=== PATIENT | male | born 1935 | race Caucasian/White ===

== ENCOUNTER → 2017-07-29 | Outpatient (CLI) | payer MEDICARE, BC ==
[2017-07-29 18:39] LABS: ABSOLUTE EOSINOPHILS # (AUTO) 0.3 10^3/uL (0.0-0.6); ABSOLUTE LYMPHOCYTES (AUTO) 1.1 10^3/uL (0.5-4.7); ABSOLUTE MONOCYTES (AUTO) 0.5 10^3/uL (0.1-1.4); ABSOLUTE NEUT (AUTO) 4.1 10^3/uL (1.7-8.2); BASOPHILS % (AUTO) 0.6 % (0-2); EOSINOPHILS % (AUTO) 4.3 % (0-6); HEMATOCRIT 38.8 % (37.9-51.0); HEMOGLOBIN 12.9 g/dL (13.5-17.0); HGB HCT DIFFERENCE -0.1; LYMPHOCYTES % (AUTO) 19.1 % (13-45); MEAN CORPUSCULAR HEMOGLOBIN 30.5 pg (27.0-33.4); MEAN CORPUSCULAR HGB CONC 33.2 g/dL (32.0-36.0); MEAN CORPUSCULAR VOLUME 92 fl (80-97); MONOCYTES % (AUTO) 7.9 % (3-13); RED BLOOD COUNT 4.22 10^6/uL (4.35-5.55); RED CELL DISTRIBUTION WIDTH 14.5 % (11.5-14.0); SEGMENTED NEUTROPHILS % (AUTO) 68.1 % (42-78)
[2017-07-29 19:07] LABS: LIPASE 28.5 U/L (23-300)
== END ==
LOC: OD 17:16
PROVIDERS: ATTEND Internal Medicine
DX: R19.7 Diarrhea, unspecified (principal); R10.12 Left upper quadrant pain
CPT/HCPCS: 36415; 82150; 83690; 85025

== ENCOUNTER 2018-08-19 20:16 | Inpatient (IN) | payer MEDICARE, BC ==
[2018-08-19 21:22] LABS: ABSOLUTE LYMPHOCYTES (AUTO) 0.6 10^3/uL (0.5-4.7); ABSOLUTE MONOCYTES (AUTO) 0.1 10^3/uL (0.1-1.4); ABSOLUTE NEUT (AUTO) 2.9 10^3/uL (1.7-8.2); BASOPHILS % (AUTO) 0.2 % (0-2); EOSINOPHILS % (AUTO) 0.2 % (0-6); HEMOGLOBIN 11.9 g/dL (13.5-17.0); LYMPHOCYTES % (AUTO) 15.4 % (13-45); MEAN CORPUSCULAR HEMOGLOBIN 31.9 pg (27.0-33.4); MEAN CORPUSCULAR HGB CONC 33.1 g/dL (32.0-36.0); MEAN CORPUSCULAR VOLUME 97 fl (80-97); MONOCYTES % (AUTO) 3.4 % (3-13); PLATELET COUNT 177 10^3/uL (150-450); RED BLOOD COUNT 3.72 10^6/uL (4.35-5.55); RED CELL DISTRIBUTION WIDTH 14.6 % (11.5-14.0); SEGMENTED NEUTROPHILS % (AUTO) 80.8 % (42-78); TOTAL CELLS COUNTED % (AUTO) 100 %; WHITE BLOOD COUNT 3.6 10^3/uL (4.0-10.5)
[2018-08-19 21:57] LABS: ALANINE AMINOTRANSFERASE 15 U/L (21-72); ALBUMIN 3.5 g/dL (3.5-5.0); ALKALINE PHOSPHATASE 49 U/L (38-126); ANION GAP 10 (5-19); ASPARTATE AMINO TRANSFERASE 18 U/L (17-59); BILIRUBIN,DIRECT 0.2 mg/dL (0.0-0.4); BILIRUBIN,TOTAL 0.3 mg/dL (0.2-1.3); BLOOD UREA NITROGEN 27 mg/dL (7-20); CALCIUM 9.3 mg/dL (8.4-10.2); CARBON DIOXIDE 27 mmol/L (22-30); CHLORIDE 100 mmol/L (98-107); GLUCOSE 378 mg/dL (75-110); LIPASE 35.5 U/L (23-300); POTASSIUM 4.7 mmol/L (3.6-5.0); TOTAL PROTEIN 6.3 g/dL (6.3-8.2)
[2018-08-19 22:08] LABS: INTERNATIONAL RATION (INR) 2.34; PARTIAL THROMBOPLASTIN TIME 39.4 SEC (23.5-35.8); PROTHROMBIN TIME 26.7 SEC (11.4-15.4)
--- NOTE | 2018-08-19 22:38 | RADIOLOGY REPORT (SQ) ---
EXAM DESCRIPTION: XR CHEST 1 VIEW COMPLETED DATE/TME: 08/19/2018 21:50 CLINICAL HISTORY: 82 years, Male, cough COMPARISON: EXAM DESCRIPTION: CLINICAL HISTORY: cough COMPARISON: None. FINDINGS: Single view of the chest is submitted. Cardiac silhouette is enlarged. There is consolidation and atelectasis at each lung base. Small left pleural effusion. Electronic cardiac device and leads are present. IMPRESSION: Bilateral consolidations. NUMBER OF VIEWS: TECHNIQUE: LIMITATIONS: None. FINDINGS: IMPRESSION: 2010 [facility], [place] [employer]- All Rights Reserved
[2018-08-19] MEDS ORDERED: NORMAL SALINE 1000 ML 1,000 ML IV ONE (23:24)
--- NOTE | 2018-08-19 23:26 | ER Document Report ---
ED GI/ - General Chief Complaint: Abdominal Pain Stated Complaint: STOMACH PAIN,DARK STOOLS Time Seen by Provider: 08/19/18 21:29 Mode of Arrival: Ambulatory Information source: Patient Notes: Patient complained of sudden onset of left lower quadrant abdominal pain associated with black stools this afternoon. Patient denied nausea vomiting, fever chills or sinus pain. TRAVEL OUTSIDE OF THE [place] IN LAST 30 DAYS: No - HPI Patient complains to provider of: Abdominal pain Onset: Just prior to arrival Timing/Duration: Sudden Quality of pain: Sharp Severity at maximum: Moderate Severity in ED: Mild Pain Level: 2 Location: LLQ Associated symptoms: Other - Black stools Exacerbated by: Denies Relieved by: Denies Similar symptoms previously: No Recently seen / treated by doctor: No - Related Data Allergies/Adverse Reactions: No Known Allergies Allergy (Verified 08/28/15 12:28) Past Medical History - Social History Smoking Status: Never Smoker Chew tobacco use (# tins/day): No Frequency of alcohol use: None Drug Abuse: None Family History: Reviewed & Not Pertinent Patient has suicidal ideation: No Patient has homicidal ideation: No - Past Medical History Cardiac Medical History: Reports: Hx Atrial Fibrillation, Hx Coronary Artery Disease, Hx Hypertension Denies: Hx Congestive Heart Failure, Hx Heart Attack, Hx Heart Murmur Pulmonary Medical History: Reports: Hx Asthma, Hx Pneumonia Denies: Hx Bronchitis, Hx COPD, Hx Tuberculosis Neurological Medical History: Denies: Hx Cerebrovascular Accident, Hx Seizures Renal/ Medical History: Denies: Hx Peritoneal Dialysis GI Medical History: Musculoskeletal Medical History: Reports Hx Arthritis Infectious Medical History: Past Surgical History: Reports: Hx Appendectomy, Hx Cholecystectomy, Hx Pacemaker, Hx Tonsillectomy - Immunizations Hx Diphtheria, Pertussis, Tetanus Vaccination: Yes Hx Pneumococcal Vaccination: 02/02/06 Review of Systems - Review of Systems Constitutional: No symptoms reported EENT: No symptoms reported Cardiovascular: No symptoms reported Respiratory: No symptoms reported Gastrointestinal: Abdominal pain, Black stools Genitourinary: No symptoms reported Male Genitourinary: No symptoms reported Musculoskeletal: No symptoms reported Skin: No symptoms reported Hematologic/Lymphatic: No symptoms reported Neurological/Psychological: No symptoms reported -: Yes All other systems reviewed and negative Physical Exam - Vital signs Vitals: Temp Pulse Resp BP Pulse Ox 97.8 F 60 20 154/59 H 97 08/19/18 20:23 08/19/18 20:23 08/19/18 20:23 08/19/18 20:23 08/19/18 20:23 Interpretation: Normal - General General appearance: Appears well, Alert - HEENT Head: Normocephalic, Atraumatic Eyes: Normal Pupils: PERRL - Respiratory Respiratory status: No respiratory distress Chest status: Nontender Breath sounds: Normal Chest palpation: Normal - Cardiovascular Rhythm: Regular Heart sounds: Normal auscultation Murmur: No - Abdominal Inspection: Normal Distension: No distension Bowel sounds: Normal Tenderness: Tender - LLQ tenderness to palpation. Organomegaly: No organomegaly - Rectal Tenderness: No Stool: Heme positive, See lab result Hemorrhoids: None Notes: [employer] Operator is Ms Gosia RN. - Back Back: Normal, Nontender - Extremities General upper extremity: Normal inspection, Nontender, Normal color, Normal ROM , Normal temperature General lower extremity: Normal inspection, Nontender, Normal color, Normal ROM , Normal temperature, Normal weight bearing. No: Osei's sign - Neurological Neuro grossly intact: Yes Cognition: Normal Orientation: AAOx4 Tamara Coma Scale Eye Opening: Spontaneous Tamara Coma Scale Verbal: Oriented Tamara Coma Scale Motor: Obeys Commands [place] Coma Scale Total: 15 Speech: Normal Motor strength normal: LUE, RUE, LLE, RLE Sensory: Normal - Psychological Associated symptoms: Normal affect, Normal mood - Skin Skin Temperature: Warm Skin Moisture: Dry Skin Color: Normal Course - Vital Signs Vital signs: Temp Pulse Resp BP Pulse Ox 97.8 F 60 15 148/57 H 100 08/19/18 20:23 08/19/18 20:23 08/20/18 04:01 08/20/18 04:01 08/20/18 04:01 - Laboratory Result Diagrams: 08/19/18 21:11 08/19/18 21:11 Laboratory results interpreted by me: 08/19/18 08/19/18 08/19/18 21:11 21:11 21:11 WBC 3.6 L RBC 3.72 L Hgb 11.9 L Hct 36.0 L RDW 14.6 H Seg Neutrophils % 80.8 H PT 26.7 H APTT 39.4 H BUN 27 H Glucose 378 H ALT 15 L Urine Glucose (UA) Urine Blood 08/19/18 23:28 WBC RBC Hgb Hct RDW Seg Neutrophils % PT APTT BUN Glucose ALT Urine Glucose (UA) >=500 H Urine Blood SMALL H - Diagnostic Test Radiology reviewed: Image reviewed, Reports reviewed - Consults No standard instances Time consulted: 03:20 Reason for consultation: 08/20/18 03:44 I consulted the [place] readiness paraprofessional Dr Nelly Rivers. He recommend admitting patient to the hospitalist and he will evaluate patient for a procedure this morning. - Transfer of Care Notes: 08/19/18 23:25 LLQ abdominal Pain. Discharge - Discharge Clinical Impression: Abdominal pain Qualifiers: Abdominal location: left lower quadrant Qualified Code(s): R10.32 - Left lower quadrant pain GI bleed Qualifiers: GI bleed type/associated pathology: unspecified gastrointestinal hemorrhage type Qualified Code(s): K92.2 - Gastrointestinal hemorrhage, unspecified Condition: Stable Disposition: ADMITTED INPATIENT Admitting Provider: Hospitalist Unit Admitted: Telemetry
[2018-08-19 23:50] LABS: APPEARANCE,URINE CLEAR; BILIRUBIN,URINE NEGATIVE (NEGATIVE); COLOR,URINE YELLOW; GLUCOSE, URINE >=500 mg/dL (NEGATIVE); KETONES,URINE NEGATIVE (NEGATIVE); LEUKOCYTE ESTERASE,URINE NEGATIVE (NEGATIVE); NITRITE,URINE NEGATIVE (NEGATIVE); PROTEIN,URINE NEGATIVE (NEGATIVE); URINE SPECIFIC GRAVITY 1.018; UROBILINOGEN,URINE NEGATIVE mg/dL (<2.0)
--- NOTE | 2018-08-20 01:41 | RADIOLOGY REPORT (SQ) ---
EXAM DESCRIPTION: CLINICAL HISTORY: 82 years Male LLQ abdominal pain. CREAT 1.07 COMPARISON: 04/18/2018 TECHNIQUE: Contiguous axial images obtained through the abdomen and pelvis without IV contrast. Reformatted images obtained. This exam was performed according to our department optimization program which includes automated exposure control, adjustment of the mA and/or kv according to patient size and/or use of iterative reconstruction technique. FINDINGS: The lung bases are clear. Heart is mildly enlarged. Pacemaker in place. Calcification in the coronary arteries and aorta. Fatty infiltration of the liver. The spleen and pancreas appear unremarkable. No adrenal masses. The kidneys appear unremarkable. No hydronephrosis or definite ureteral calculi. The gallbladder is surgically absent. No aneurysmal dilatation of the aorta. No bowel obstruction. Diverticulosis without evidence of diverticulitis. Multilevel degenerative change in the thoracic and the lumbar spine with previous spinal fusion No free pelvic fluid. Bilateral fat-containing inguinal hernias. IMPRESSION: Diverticulosis without evidence of diverticulitis Enlarged heart Absent gallbladder Additional changes as above
[2018-08-20] MEDS ORDERED: LEVOFLOXACIN 750 MG/D5W RTU 750 MG/150 ML RTUPB IV ONE (01:59)
[2018-08-20] MEDS ORDERED: PANTOPRAZOLE SODIUM 40 MG VIAL IV ONE (03:27)
[2018-08-20] MEDS ORDERED: PROMETHAZINE HCL 25 MG TABLET PO PRN (06:05)
[2018-08-20] MEDS ORDERED: IPRATROPIUM/ALBUTEROL 0.5-2.5 MG/3 ML AMPUL NEB PRN (06:05)
[2018-08-20] MEDS ORDERED: GLUCAGON,HUMAN RECOMB 1 MG INJ SUBCUT PRN (06:05)
[2018-08-20] MEDS ORDERED: ACETAMINOPHEN 325 MG TABLET PO PRN (06:05)
[2018-08-20] MEDS ORDERED: DEXTROSE 40% GEL 15 GM TUBE PO PRN ×2 (06:05)
[2018-08-20] MEDS ORDERED: DEXTROSE 50%-WATER 25 GM/50 ML DISP.SYRIN IV PRN ×2 (06:05)
[2018-08-20] MEDS ORDERED: MAG HYDROX/AL HYDROX/SIMETH SUSP 30 ML UDCUP PO PRN (06:05)
[2018-08-20] MEDS ORDERED: PROMETHAZINE HCL INJ 25 MG/1 ML VIAL IV PRN (06:05)
--- NOTE | 2018-08-20 06:29 | PDOC H&P ---
History of Present Illness Admission Date/PCP: 08/20/18 03:59 GREY MCMULLEN MD Patient complains of: Melena History of Present Illness: AMINATA BILL SR is a 82 year old male who came to the emergency department as yesterday he had 2 melanotic bowel movements, one hour apart, tells me that they are black tarry stools. Patient denies having any history of GI bleeding in the past. Complains of left lower quadrant pain which is not new has been going on and off during several years. Symptoms were associated with nausea for which she took Zofran at home. Denies dizziness, fever, chills, vomiting, chest pain. Patient is on Coumadin at home, current INR 2.34. Last colonoscopy about 7 years ago was found polyps. EGD about [address] results[address] CT abdomen and pelvis with diverticulosis. Hemoglobin 11.9 and hematocrit 36. No bowel movements in the ED. Patient is also complaining of allergic symptoms, tells me that as they went back to their house which was floated to have a lot of mold, he has been mildly wheezing with pink eyes, denies postnasal drip but feels that his nose and head are stuffy. Chest x-ray shows a small left pleural effusion with atelectasis versus infiltrate in both bases. ED attending is spoke with Dr. Rivers who is the GI regional education manager and his plan to do EGD today. Past Medical History Cardiac Medical History: Reports: Atrial Fibrillation, Coronary Artery Disease, Hypertension Denies: Congestive Heart Failure, Myocardial Infarction, Heart Murmur Pulmonary Medical History: Reports: Asthma, Chronic Obstructive Pulmonary Disease (COPD), Pneumonia Denies: Bronchitis, Tuberculosis Neurological Medical History: Denies: Seizures Endocrine Medical History: Reports: Diabetes Mellitus Type 2 Renal/ Medical History: Reports: Other - BPH GI Medical History: Musculoskeltal Medical History: Reports: Arthritis Hematology: Denies: Anemia Past Surgical History Past Surgical History: Reports: Appendectomy, Cholecystectomy, Pacemaker, Tonsillectomy Social History Smoking Status: Never Smoker Frequency of Alcohol Use: None Hx Recreational Drug Use: No Drugs: None Hx Prescription Drug Abuse: No Past Social History Note: Lives with his who is at the bedside. Patient is minimal ambulatory with a cane due to back and knee issues. - Advance Directive Resuscitation Status: Do Not Resuscitate Family History Family History: Reviewed & Not Pertinent Parental Family History Reviewed: No Children Family History Reviewed: NA Sibling(s) Family History Reviewed.: NA Medication/Allergy Home Medications: Amlodipine Besylate [Norvasc 5 mg Tablet] 5 mg PO DAILY 03/28/12 Doxazosin Mesylate [Cardura Xl] 4 mg PO DAILY 03/28/12 Morphine Sulfate [Morphine Ir 30 Mg Tablet] 30 mg PO TID 03/28/12 Multivitamin [Multiple Vitamins Daily] 1 each PO DAILY 03/28/12 [place]-3 Fatty Acids/Fish Oil [Fish Oil 300 Mg Softgel] 2 each PO BID 03/28/12 Warfarin Sodium [Coumadin] 6 mg PO QHS 03/28/12 Fluticasone/Salmeterol [Advair 250-50 Diskus 14 Dose/Diskus] 1 inh IH Q12H 08/28 Glimepiride [Amaryl] 2 mg PO DAILY 08/28/15 Hydrochlorothiazide 25 mg PO DAILY 08/28/15 Metoprolol Tartrate 25 tab PO DAILY 08/28/15 Ondansetron [Zofran Odt 4 mg Tablet] 1 - 2 tab PO Q4H #10 tab.rapdis 08/28/15 Oxycodone HCl 5 mg PO BID 08/28/15 Pregabalin [Lyrica 75 mg Capsule] 75 mg PO DAILY 08/28/15 Triamterene/Hydrochlorothiazid [Triamterene-Hctz 37.5-25 mg Cp] 37.5 tab PO DAILY 08/28/15 Allergies/Adverse Reactions: No Known Allergies Allergy (Verified 08/28/15 12:28) Review of Systems Review of Systems: As outlined in the HPI, others negative Physical Exam Vital Signs: Temp Pulse Resp BP Pulse Ox 97.9 F 69 15 163/75 H 100 08/20/18 05:35 08/20/18 05:35 08/20/18 04:01 08/20/18 05:35 08/20/18 05:35 Intake & Output 08/18/18 08/19/18 08/20/18 06:59 06:59 06:59 Intake Total 150 Balance 150 Additional comments: General appearance: Well-developed, well-nourished, alert and cooperative, and appears to be in no acute distress Head: Normocephalic Eyes: PEERL, EOMI, vision is decreased, conjunctiva pinkish. Ears: External auditory canal and tympanic membranes clear, hearing grossly intact. Nose: No nasal discharge. Throat: Oral cavity and pharynx normal. No inflammation, swelling, exudate or lesions. Neck: Neck supple, nontender without lymphadenopathy, masses or thyromegaly. Cardiac: Normal S1 and S2. No S3, S4 or murmurs. Rhythm is irregular. There is no peripheral edema, cyanosis or pallor. Extremities are warm and well perfused. Capillary refill is less than 2 seconds. No carotid bruits. Lungs: Clear to auscultation and percussion without rales, rhonchi, very mild expiratory wheezing or diminished breath sounds. Not using accessory muscles. Abdomen: Positive bowel sounds. Soft. Nondistended, minimal tenderness in the left lower quadrant. No guarding or rebound. No masses. No hepatosplenomegaly Extremities: No significant deformity or joint abnormality. No edema. Peripheral pulses intact. No varicosities. Neurological: Cranial nerves II through XII grossly intact. Moves all 4 extremities Skin: Skin pale, normal texture and turgor with no lesions or eruptions, warm and dry. Psychiatric: The mental examination revealed the patient was oriented to person , place, and time. The patient was able to demonstrate good judgment on recent , without hallucinations, abnormal affect or abnormal behaviors. Results Laboratory Results: 08/19/18 08/19/18 08/19/18 21:11 21:11 21:11 WBC 3.6 L RBC 3.72 L Hgb 11.9 L Hct 36.0 L MCV 97 MCH 31.9 MCHC 33.1 RDW 14.6 H Plt Count 177 Seg Neutrophils % 80.8 H Lymphocytes % 15.4 Monocytes % 3.4 Eosinophils % 0.2 Basophils % 0.2 Absolute Neutrophils 2.9 Absolute Lymphocytes 0.6 Absolute Monocytes 0.1 Absolute Eosinophils 0.0 Absolute Basophils 0.0 PT 26.7 H INR 2.34 APTT 39.4 H Sodium 137.0 Potassium 4.7 Chloride 100 Carbon Dioxide 27 Anion Gap 10 BUN 27 H Creatinine 1.07 Est GFR ( Amer) > 60 Est GFR (Non-Af Amer) > 60 Glucose 378 H Calcium 9.3 Total Bilirubin 0.3 Direct Bilirubin 0.2 AST 18 ALT 15 L Alkaline Phosphatase 49 Total Protein 6.3 Albumin 3.5 Lipase 35.5 Urine Color Urine Appearance Urine pH Ur Specific [place] Urine Protein Urine Glucose (UA) Urine Ketones Urine Blood Urine Nitrite Urine Bilirubin Urine Urobilinogen Ur Leukocyte Esterase Urine WBC (Auto) Urine RBC (Auto) U Hyaline Cast (Auto) Urine Mucus (Auto) Urine Ascorbic Acid 08/19/18 23:28 WBC RBC Hgb Hct MCV MCH MCHC RDW Plt Count Seg Neutrophils % Lymphocytes % Monocytes % Eosinophils % Basophils % Absolute Neutrophils Absolute Lymphocytes Absolute Monocytes Absolute Eosinophils Absolute Basophils PT INR APTT Sodium Potassium Chloride Carbon Dioxide Anion Gap BUN Creatinine Est GFR ( Amer) Est GFR (Non-Af Amer) Glucose Calcium Total Bilirubin Direct Bilirubin AST ALT Alkaline Phosphatase Total Protein Albumin Lipase Urine Color YELLOW Urine Appearance CLEAR Urine pH 5.0 Ur Specific [place] 1.018 Urine Protein NEGATIVE Urine Glucose (UA) >=500 H Urine Ketones NEGATIVE Urine Blood SMALL H Urine Nitrite NEGATIVE Urine Bilirubin NEGATIVE Urine Urobilinogen NEGATIVE Ur Leukocyte Esterase NEGATIVE Urine WBC (Auto) 0 Urine RBC (Auto) 6 U Hyaline Cast (Auto) 1 Urine Mucus (Auto) RARE Urine Ascorbic Acid NEGATIVE Impressions: Chest X-Ray 08/19/18 21:50 Electronic cardiac device and leads are present. IMPRESSION: Bilateral consolidations. NUMBER OF VIEWS: TECHNIQUE: LIMITATIONS: None. FINDINGS: IMPRESSION: 2010 [employer]- All Rights Reserved Abdomen/Pelvis CT 08/19/18 23:24 IMPRESSION: Diverticulosis without evidence of diverticulitis Enlarged heart Absent gallbladder Additional changes as above Assessment & Plan - Diagnosis (1) GI bleed Qualifiers: GI bleed type/associated pathology: unspecified gastrointestinal hemorrhage type Qualified Code(s): K92.2 - Gastrointestinal hemorrhage, unspecified Is this a current diagnosis for this admission?: Yes Plan: Patient comes with 2 episodes of melena. Hemoglobin 11.9, patient does not need any emergent blood transfusion, type and screen sent in the ED. IV Protonix 40 mg twice a day. GI with Dr. Rivers aware of the patient and plan to do EGD today as per discussion he had with the ED attending. We will keep the patient n.p.o. No further bowel movements in the ED. Denies any history of GI bleeding in the past. Coumadin on hold. (2) Diabetes mellitus type 2 in nonobese Is this a current diagnosis for this admission?: Yes Plan: Accu-Cheks every 6 hours the patient will be n.p.o. Continue home medications. Insulin sliding scale and hypoglycemia protocol. (3) Chronic atrial fibrillation Is this a current diagnosis for this admission?: Yes Plan: Patient is on Coumadin and metoprolol. Coumadin on hold. Last INR 2.34, will repeat an INR this morning. - Time Time Spent: 30 to 50 Minutes - Inpatient Certification Based on my medical assessment, after consideration of the patient's comorbidities, presenting symptoms, or acuity I expect that the services needed warrant INPATIENT care.: Yes I certify that my determination is in accordance with my understanding of Medicare's requirements for reasonable and necessary INPATIENT services [42 CFR 412.3e].: Yes Medical Necessity: Risk of Complication if Not Cared For in Hospital
[2018-08-20] MEDS: NORMAL SALINE 1000 ML 1,000 ML IV PRN ×2 (06:50→20:22)
[2018-08-20] MEDS ORDERED: MORPHINE SULFATE IR 30 MG TABLET PO PRN (06:58)
[2018-08-20 07:12] LABS: HEMATOCRIT 34.2 % (37.9-51.0); HEMOGLOBIN 11.4 g/dL (13.5-17.0); MEAN CORPUSCULAR HEMOGLOBIN 31.8 pg (27.0-33.4); MEAN CORPUSCULAR HGB CONC 33.2 g/dL (32.0-36.0); MEAN CORPUSCULAR VOLUME 96 fl (80-97); PLATELET COUNT 163 10^3/uL (150-450); RED BLOOD COUNT 3.58 10^6/uL (4.35-5.55); RED CELL DISTRIBUTION WIDTH 14.3 % (11.5-14.0)
[2018-08-20 07:13] LABS: WHITE BLOOD COUNT 11.6 10^3/uL (4.0-10.5)
[2018-08-20 07:19] LABS: PROTHROMBIN TIME 27.3 SEC (11.4-15.4)
--- NOTE | 2018-08-20 07:43 | PDOC CONSULTATION ---
Consultation Consult Date: 08/20/18 Attending physician:: ANTOINE DING Consult reason:: GI bleeding History of Present Illness Admission Date/PCP: 08/20/18 03:59 GREY MCMULLEN MD History of Present Illness: AMINATA BILL SR is a 82 year old male I was called for the patient overnight from the ED was told that he needed to be admitted has been having melena patient with previous colonoscopy showing some polyps however has symptoms of melena patient will probably need EGD however I was not told about the patient PT/ INR it is elevated and patient is on coumadin will NOT be able to proceed today since elevated will need to let the PT either normalize or be corrected prior to EGD may have ulcer disease Past Medical History Cardiac Medical History: Reports: Atrial Fibrillation, Coronary Artery Disease, Hypertension Denies: Congestive Heart Failure, Myocardial Infarction, Heart Murmur Pulmonary Medical History: Reports: Asthma, Chronic Obstructive Pulmonary Disease (COPD), Pneumonia Denies: Bronchitis, Tuberculosis Neurological Medical History: Denies: Seizures Endocrine Medical History: Reports: Diabetes Mellitus Type 2 Renal/ Medical History: Reports: Other - BPH GI Medical History: Musculoskeltal Medical History: Reports: Arthritis Hematology: Denies: Anemia Past Surgical History Past Surgical History: Reports: Appendectomy, Cholecystectomy, Pacemaker, Tonsillectomy Social History Smoking Status: Never Smoker Frequency of Alcohol Use: None Hx Recreational Drug Use: No Drugs: None Hx Prescription Drug Abuse: No - Advance Directive Resuscitation Status: Do Not Resuscitate Family History Family History: Reviewed & Not Pertinent Parental Family History Reviewed: Yes Children Family History Reviewed: Unknown Sibling(s) Family History Reviewed.: Unknown Medication/Allergy Allergies/Adverse Reactions: No Known Allergies Allergy (Verified 08/28/15 12:28) Review of Systems Constitutional: ABSENT: fever(s), headache(s), night sweats Eyes: ABSENT: visual disturbances Ears: ABSENT: hearing changes Nose, Mouth, and Throat: ABSENT: mouth pain Cardiovascular: ABSENT: edema, palpitations Respiratory: ABSENT: dyspnea, hemoptysis Gastrointestinal: PRESENT: melena. ABSENT: diarrhea, hematochezia Genitourinary: ABSENT: dysuria, hematuria Musculoskeletal: ABSENT: deformity, joint swelling Integumentary: ABSENT: pruritus Neurological: ABSENT: syncope, tingling, tremor(s), vertigo Endocrine: ABSENT: polydipsia, polyphagia, polyuria Hematologic/Lymphatic: ABSENT: easy bruising Physical Exam Vital Signs: Temp Pulse Resp BP Pulse Ox 97.9 F 69 15 163/75 H 100 08/20/18 05:35 08/20/18 05:35 08/20/18 04:01 08/20/18 05:35 08/20/18 05:35 Intake & Output 08/19/18 08/20/18 08/21/18 06:59 06:59 06:59 Intake Total 150 Balance 150 Weight 91.2 kg General appearance: PRESENT: no acute distress, well-developed, well-nourished Head exam: PRESENT: atraumatic, normocephalic Eye exam: PRESENT: EOMI, PERRLA. ABSENT: nystagmus, scleral icterus Mouth exam: PRESENT: moist Teeth exam: PRESENT: edentulous Throat exam: ABSENT: tonsillar exudate, tonsillogmegaly Neck exam: ABSENT: meningismus, tenderness, thyromegaly Respiratory exam: PRESENT: symmetrical, unlabored. ABSENT: tachypnea, wheezes Cardiovascular exam: PRESENT: irregular rhythm GI/Abdominal exam: ABSENT: Wallace's sign, rebound, rigid Musculoskeletal exam: PRESENT: full ROM Neurological exam: PRESENT: oriented to time, oriented to situation, CN II-XII grossly intact Focused psych exam: ABSENT: restlessness Skin exam: PRESENT: normal color. ABSENT: mottled, pallor, urticaria, vesicles Results Laboratory Results: 08/20/18 06:48 08/20/18 06:48 WBC 11.6 H D RBC 3.58 L Hgb 11.4 L Hct 34.2 L MCV 96 MCH 31.8 MCHC 33.2 RDW 14.3 H Plt Count 163 Impressions: Chest X-Ray 08/19/18 21:50 Electronic cardiac device and leads are present. IMPRESSION: Bilateral consolidations. NUMBER OF VIEWS: TECHNIQUE: LIMITATIONS: None. FINDINGS: IMPRESSION: 2010 [employer]- All Rights Reserved Abdomen/Pelvis CT 08/19/18 23:24 IMPRESSION: Diverticulosis without evidence of diverticulitis Enlarged heart Absent gallbladder Additional changes as above Assessment & Plan - Diagnosis (1) GI bleed Qualifiers: GI bleed type/associated pathology: unspecified gastrointestinal hemorrhage type Qualified Code(s): K92.2 - Gastrointestinal hemorrhage, unspecified Is this a current diagnosis for this admission?: Yes Plan: patient does have symptoms of melena will need EGD however PT is elevated and patient is on Coumadin will need to get that corrected before proceeding Risks, benefits and alternatives are discussed with the patient RN made aware of issue will let hospitalist know about current issue transfuse as necessary EGD when INR has been corrected IV ppi, keep NPO for now - Time Time Spent: 50 to 70 Minutes
[2018-08-20] MEDS: OXYCODONE HCL IR 5 MG TABLET PO SCH ×2 (10:16→17:39)
[2018-08-20] MEDS: PANTOPRAZOLE SODIUM 40 MG VIAL IV SCH ×2 (10:17→22:27)
--- NOTE | 2018-08-20 11:24 | Progress Note ---
Provider Note Provider Note: called RN about 30 mins ago, INR still elevated and has not been addressed as yet will not be able to complete EGD until has been corrected RN was to have made Hospitalist aware will reschedule for tomorrow follow up on H/H PPI transfuse as necessary.
[2018-08-20] MEDS ORDERED: BISACODYL 5 MG TABEC PO PRN (13:43)
[2018-08-20] MEDS ORDERED: NITROGLYCERIN 0.4 MG/TAB 25 TAB/BOTTLE SL PRN (13:43)
[2018-08-20] MEDS ORDERED: LORATADINE 10 MG TABLET PO ONE (14:45)
[2018-08-20] MEDS: GABAPENTIN 300 MG CAPSULE PO SCH ×2 (14:57→22:28)
[2018-08-20] MEDS: FINASTERIDE 5 MG TABLET PO SCH (14:57)
[2018-08-20] MEDS: OLOPATADINE HCL 0.1% OPH SOLN 5 ML OU SCH ×2 (16:55→17:47)
[2018-08-20] MEDS: DOXAZOSIN MESYLATE 4 MG TABLET PO SCH (16:56)
[2018-08-20] MEDS ORDERED: PHYTONADIONE 5 MG TABLET PO ONE (20:00)
[2018-08-20] MEDS: METOPROLOL TARTRATE 25 MG TABLET PO SCH (22:29)
[2018-08-20] MEDS: MORPHINE SULFATE SR 30 MG TABLET PO SCH (22:30)
[2018-08-20] MEDS: FLUTICASONE PROPIONATE HFA 110 MCG/PUFF 12 GM MDI IH SCH (22:38)
[2018-08-21 06:24] LABS: ABSOLUTE EOSINOPHILS # (AUTO) 0.4 10^3/uL (0.0-0.6); ABSOLUTE LYMPHOCYTES (AUTO) 1.1 10^3/uL (0.5-4.7); ABSOLUTE MONOCYTES (AUTO) 0.4 10^3/uL (0.1-1.4); ABSOLUTE NEUT (AUTO) 5.1 10^3/uL (1.7-8.2); BASOPHILS % (AUTO) 0.3 % (0-2); EOSINOPHILS % (AUTO) 5.4 % (0-6); HEMATOCRIT 29.8 % (37.9-51.0); HEMOGLOBIN 10.4 g/dL (13.5-17.0); LYMPHOCYTES % (AUTO) 15.6 % (13-45); MEAN CORPUSCULAR HEMOGLOBIN 33.2 pg (27.0-33.4); MEAN CORPUSCULAR HGB CONC 34.8 g/dL (32.0-36.0); MEAN CORPUSCULAR VOLUME 95 fl (80-97); MONOCYTES % (AUTO) 6.1 % (3-13); PLATELET COUNT 132 10^3/uL (150-450); RED BLOOD COUNT 3.13 10^6/uL (4.35-5.55); RED CELL DISTRIBUTION WIDTH 14.2 % (11.5-14.0); SEGMENTED NEUTROPHILS % (AUTO) 72.6 % (42-78); TOTAL CELLS COUNTED % (AUTO) 100 %
[2018-08-21 06:33] LABS: INTERNATIONAL RATION (INR) 2.06; PROTHROMBIN TIME 24.2 SEC (11.4-15.4)
[2018-08-21 06:50] LABS: ALANINE AMINOTRANSFERASE 16 U/L (21-72); ALBUMIN 2.7 g/dL (3.5-5.0); ALKALINE PHOSPHATASE 37 U/L (38-126); ANION GAP 8 (5-19); ASPARTATE AMINO TRANSFERASE 14 U/L (17-59); BILIRUBIN,DIRECT 0.1 mg/dL (0.0-0.4); BILIRUBIN,TOTAL 0.6 mg/dL (0.2-1.3); BLOOD UREA NITROGEN 18 mg/dL (7-20); CALCIUM 8.6 mg/dL (8.4-10.2); CARBON DIOXIDE 24 mmol/L (22-30); CHLORIDE 108 mmol/L (98-107); GLUCOSE 89 mg/dL (75-110); POTASSIUM 3.9 mmol/L (3.6-5.0); SODIUM 139.8 mmol/L (137-145); TOTAL PROTEIN 5.1 g/dL (6.3-8.2)
[2018-08-21] MEDS: LEVOFLOXACIN 750 MG/D5W RTU 750 MG/150 ML RTUPB IV SCH (08:09)
[2018-08-21] MEDS ORDERED: PROMETHAZINE HCL INJ 25 MG/1 ML VIAL IV PRN (09:00)
[2018-08-21] MEDS ORDERED: AMLODIPINE BESYLATE 5 MG TABLET PO SCH ×2 (10:00→12:12)
[2018-08-21] MEDS: PANTOPRAZOLE SODIUM 40 MG VIAL IV SCH ×2 (10:20→21:31)
[2018-08-21] MEDS: MORPHINE SULFATE SR 30 MG TABLET PO SCH ×2 (10:21→21:26)
[2018-08-21] MEDS: DOXAZOSIN MESYLATE 4 MG TABLET PO SCH (10:21)
[2018-08-21] MEDS: METOPROLOL TARTRATE 25 MG TABLET PO SCH ×2 (10:21→21:26)
[2018-08-21] MEDS: FINASTERIDE 5 MG TABLET PO SCH (10:23)
[2018-08-21] MEDS: FLUTICASONE PROPIONATE HFA 110 MCG/PUFF 12 GM MDI IH SCH ×2 (10:23→21:30)
[2018-08-21] MEDS: GABAPENTIN 300 MG CAPSULE PO SCH ×2 (10:23→21:26)
[2018-08-21] MEDS: OLOPATADINE HCL 0.1% OPH SOLN 5 ML OU SCH ×2 (10:23→17:22)
[2018-08-21] MEDS: POLYETHYLENE GLYCOL 3350 POWDER 17 GM/1 PACKET PO SCH (10:32)
[2018-08-21] MEDS: OXYCODONE HCL IR 5 MG TABLET PO SCH ×3 (11:10→21:29)
[2018-08-21 11:20] LABS: INTERNATIONAL RATION (INR) 1.84; PROTHROMBIN TIME 22.1 SEC (11.4-15.4)
--- NOTE | 2018-08-21 13:48 | PDOC PROGRESS REPORT ---
Subjective Progress Note for:: 08/21/18 Subjective:: AMINATA BILL SR is a 82 year old male past medical history of hypertension, hyperlipidemia, diabetes, chronic low back pain, atrial fibrillation, sick sinus syndrome status post permanent pacemaker. He presented to ED complaining of 2 episodes of melanotic bowel movements, one hour apart. Patient denied having any history of GI bleed or GI malignancy. Complains of chronic left lower quadrant pain. He also was complaining of nausea for which she took Zofran at home. Patient is on Coumadin at home, current INR 2.34. Last colonoscopy about 7 years ago was found polyps. EGD about 40 years ago [address] results[address] CT abdomen and pelvis showed diverticulosis. Hemoglobin 11.9. Chest x- ray shows a small left pleural effusion with atelectasis versus infiltrate in both bases. ED attending is spoke with Dr. Rivers who is the GI vocational nurse lvn and his plan to do EGD on the day of admission. 08/21/2018. No acute events overnight. Patient denies having any melena or hematochezia. Patient's endoscopy was canceled yesterday because of elevated INR. Patient was given 1 dose of vitamin K last night and his warfarin dosage was skipped yesterday. INR today is subtherapeutic however PTT is elevated and his EGD was again canceled by the GI. Yesterday patient was complaining about the fact that his home medications for chronic pain was not restarted. And also he was complaining of itchy and puffy eyes. His home medications were reconciled and restarted and he was given antihistamines p.o. and ophthalmic. Overnight patient has been very pleasant and cooperative. On my encounter today patient is very pleasant and cooperative with physical examination and he is happy with his medical care. He denies having any melena or hematochezia. He has been n.p.o. for EGD today but unfortunately it was canceled again because of his elevated PTT. He denies any fever, chills, nausea, vomiting, shortness of breath, chest pain, abdominal pain, diarrhea, constipation or any urinary symptoms. Reason For Visit: GI BLEEDING Physical Exam Vital Signs: Temp Pulse Resp BP Pulse Ox 98.9 F 61 17 145/61 H 97 08/21/18 10:47 08/21/18 10:47 08/21/18 10:47 08/21/18 10:47 08/21/18 10:47 Intake & Output 08/20/18 08/21/18 08/22/18 06:59 06:59 06:59 Intake Total 150 1540 1150 Output Total 300 Balance 150 1240 1150 Weight 91.2 kg 91.2 kg General appearance: PRESENT: no acute distress, well-developed, well-nourished Head exam: PRESENT: atraumatic, normocephalic Eye exam: PRESENT: conjunctiva pink, EOMI, PERRLA. ABSENT: scleral icterus Ear exam: PRESENT: normal external ear exam Mouth exam: PRESENT: moist, tongue midline Neck exam: ABSENT: carotid bruit, JVD, lymphadenopathy, thyromegaly Respiratory exam: PRESENT: clear to auscultation giuliano. ABSENT: rales, rhonchi, wheezes Cardiovascular exam: PRESENT: RRR. ABSENT: diastolic murmur, rubs, systolic murmur Pulses: PRESENT: normal dorsalis pedis pul Vascular exam: PRESENT: normal capillary refill GI/Abdominal exam: PRESENT: normal bowel sounds, soft. ABSENT: distended, guarding, mass, organolmegaly, rebound, tenderness Rectal exam: PRESENT: deferred Extremities exam: PRESENT: full ROM. ABSENT: calf tenderness, clubbing, pedal edema Neurological exam: PRESENT: alert, awake, oriented to person, oriented to place , oriented to time, oriented to situation, CN II-XII grossly intact. ABSENT: motor sensory deficit Psychiatric exam: PRESENT: appropriate affect, normal mood. ABSENT: homicidal ideation, suicidal ideation Skin exam: PRESENT: dry, intact, warm. ABSENT: cyanosis, rash Results Laboratory Results: 08/21/18 05:06 08/21/18 05:06 08/21/18 08/21/18 05:06 05:06 WBC 7.0 RBC 3.13 L Hgb 10.4 L Hct 29.8 L MCV 95 MCH 33.2 MCHC 34.8 RDW 14.2 H Plt Count 132 L Seg Neutrophils % 72.6 Lymphocytes % 15.6 Monocytes % 6.1 Eosinophils % 5.4 Basophils % 0.3 Absolute Neutrophils 5.1 Absolute Lymphocytes 1.1 Absolute Monocytes 0.4 Absolute Eosinophils 0.4 Absolute Basophils 0.0 Sodium 139.8 Potassium 3.9 Chloride 108 H Carbon Dioxide 24 Anion Gap 8 BUN 18 Creatinine 0.94 Est GFR ( Amer) > 60 Est GFR (Non-Af Amer) > 60 Glucose 89 Calcium 8.6 Magnesium 1.8 Total Bilirubin 0.6 AST 14 L ALT 16 L Alkaline Phosphatase 37 L Total Protein 5.1 L Albumin 2.7 L Impressions: Chest X-Ray 08/19/18 21:50 Electronic cardiac device and leads are present. IMPRESSION: Bilateral consolidations. NUMBER OF VIEWS: TECHNIQUE: LIMITATIONS: None. FINDINGS: IMPRESSION: 2010 [employer]- All Rights Reserved Abdomen/Pelvis CT 08/19/18 23:24 IMPRESSION: Diverticulosis without evidence of diverticulitis Enlarged heart Absent gallbladder Additional changes as above Assessment & Plan - Diagnosis (1) GI bleed Qualifiers: GI bleed type/associated pathology: unspecified gastrointestinal hemorrhage type Qualified Code(s): K92.2 - Gastrointestinal hemorrhage, unspecified Is this a current diagnosis for this admission?: Yes Plan: H&H is stable. Patient is pending an endoscopy per GI. His endoscopy has been canceled because of elevated INR. Hold warfarin today. INR tomorrow morning. N.p.o. after midnight. Supportive transfusions. (2) Chronic back pain Qualifiers: Back pain location: low back pain Is this a current diagnosis for this admission?: No Plan: Restart home medications. (3) Chronic atrial fibrillation Is this a current diagnosis for this admission?: Yes Plan: Rate controlled. Hold warfarin for pending upper GI endoscopy for GI bleed. (4) Diabetes mellitus Is this a current diagnosis for this admission?: No Plan: Fasting blood glucose within normal limits. Patient takes metformin at home. Continue Accu-Chek and sliding scale. Diabetic diet. (5) HTN (hypertension) Is this a current diagnosis for this admission?: No Plan: Restart home meds adjust meds as needed. (6) Dyslipidemia Is this a current diagnosis for this admission?: No Plan: Restart statins. (7) BPH (benign prostatic hyperplasia) Is this a current diagnosis for this admission?: No Plan: Restart home meds. (8) Chronic constipation Is this a current diagnosis for this admission?: No Plan: Likely due to chronic opioid use. Restart bowel regimen.
[2018-08-22] MEDS: DEXTROSE 5%-WATER 1000 ML 1,000 ML IV PRN ×2 (00:03→20:34)
[2018-08-22 05:27] LABS: ABSOLUTE EOSINOPHILS # (AUTO) 0.5 10^3/uL (0.0-0.6); ABSOLUTE LYMPHOCYTES (AUTO) 1.1 10^3/uL (0.5-4.7); ABSOLUTE MONOCYTES (AUTO) 0.5 10^3/uL (0.1-1.4); BASOPHILS % (AUTO) 0.4 % (0-2); EOSINOPHILS % (AUTO) 8.1 % (0-6); HEMATOCRIT 31.2 % (37.9-51.0); HEMOGLOBIN 10.7 g/dL (13.5-17.0); LYMPHOCYTES % (AUTO) 17.4 % (13-45); MEAN CORPUSCULAR HEMOGLOBIN 32.8 pg (27.0-33.4); MEAN CORPUSCULAR HGB CONC 34.3 g/dL (32.0-36.0); MEAN CORPUSCULAR VOLUME 96 fl (80-97); PLATELET COUNT 130 10^3/uL (150-450); RED BLOOD COUNT 3.26 10^6/uL (4.35-5.55); RED CELL DISTRIBUTION WIDTH 14.1 % (11.5-14.0); SEGMENTED NEUTROPHILS % (AUTO) 66.1 % (42-78); TOTAL CELLS COUNTED % (AUTO) 100 %
[2018-08-22 05:28] LABS: INTERNATIONAL RATION (INR) 1.36; PROTHROMBIN TIME 17.5 SEC (11.4-15.4)
[2018-08-22 05:50] LABS: ALANINE AMINOTRANSFERASE 18 U/L (21-72); ALBUMIN 2.7 g/dL (3.5-5.0); ALKALINE PHOSPHATASE 38 U/L (38-126); ANION GAP 8 (5-19); ASPARTATE AMINO TRANSFERASE 15 U/L (17-59); BILIRUBIN,DIRECT 0.2 mg/dL (0.0-0.4); BLOOD UREA NITROGEN 16 mg/dL (7-20); CALCIUM 8.7 mg/dL (8.4-10.2); CARBON DIOXIDE 26 mmol/L (22-30); CHLORIDE 106 mmol/L (98-107); GLUCOSE 129 mg/dL (75-110); POTASSIUM 3.8 mmol/L (3.6-5.0); SODIUM 139.9 mmol/L (137-145); TOTAL PROTEIN 5.2 g/dL (6.3-8.2)
[2018-08-22] MEDS: LEVOFLOXACIN 750 MG/D5W RTU 750 MG/150 ML RTUPB IV SCH (07:36)
[2018-08-22] MEDS: DOXAZOSIN MESYLATE 4 MG TABLET PO SCH (09:24)
[2018-08-22] MEDS: METOPROLOL TARTRATE 25 MG TABLET PO SCH ×2 (09:25→21:29)
[2018-08-22] MEDS: FINASTERIDE 5 MG TABLET PO SCH (09:25)
[2018-08-22] MEDS: OXYCODONE HCL IR 5 MG TABLET PO SCH ×2 (09:25→17:51)
[2018-08-22] MEDS: POLYETHYLENE GLYCOL 3350 POWDER 17 GM/1 PACKET PO SCH (09:25)
[2018-08-22] MEDS: DOCUSATE SODIUM 100 MG CAPSULE PO SCH ×2 (09:28→17:51)
[2018-08-22] MEDS: MORPHINE SULFATE SR 30 MG TABLET PO SCH ×2 (09:28→21:27)
[2018-08-22] MEDS: AMLODIPINE BESYLATE 10 MG TABLET PO SCH (09:29)
[2018-08-22] MEDS: GABAPENTIN 300 MG CAPSULE PO SCH ×2 (09:30→21:27)
[2018-08-22] MEDS: FLUTICASONE PROPIONATE HFA 110 MCG/PUFF 12 GM MDI IH SCH ×2 (09:30→21:26)
[2018-08-22] MEDS: OLOPATADINE HCL 0.1% OPH SOLN 5 ML OU SCH ×2 (09:31→17:52)
[2018-08-22] MEDS: PANTOPRAZOLE SODIUM 40 MG VIAL IV SCH ×2 (09:32→21:31)
[2018-08-22] MEDS ORDERED: DIPHENHYDRAMINE HCL 50 MG/ML VIAL ONE (11:06)
[2018-08-22] MEDS ORDERED: ONDANSETRON HCL INJ/PF 4 MG/2 ML SDV ONE (11:06)
[2018-08-22] MEDS ORDERED: FLUMAZENIL INJ 0.5 MG/5 ML VIAL ONE (11:07)
[2018-08-22] MEDS ORDERED: NALOXONE HCL INJ/PF 0.4 MG/1 ML SDV ONE (11:07)
[2018-08-22] MEDS ORDERED: EPINEPHRINE INJ 1 MG/10 ML DISP.SYRIN ONE (11:07)
[2018-08-22] MEDS ORDERED: FENTANYL CITRATE INJ/PF 100 MCG/2 ML AMPUL ONE (11:07)
[2018-08-22] MEDS ORDERED: GLUCAGON,HUMAN RECOMB 1 MG INJ ONE (11:07)
[2018-08-22] MEDS: MIDAZOLAM 2 MG/2 ML INJ ONE ×2 (11:28→11:30)
--- NOTE | 2018-08-22 12:02 | Operative Report ---
Operative Report DATE OF SURGERY: 08/22/18 Operative Report: The risks benefits and alternatives of the procedure explained to the patient in detail and informed consent is obtained.A GIF Olympus video scope was inserted into the patient's mouth and hypopharynx, the esophagus is identified intubated and insufflated ,the scope was then advanced through the esophagus stomach and duodenum, retroflexion maneuver is done the esophagus stomach and first and second portions of the duodenum examined PREOPERATIVE DIAGNOSIS: Possible GI bleed question melena POSTOPERATIVE DIAGNOSIS: Gastritis status post biopsy rule out Helicobacter pylori. Gastric polyps suggestive of benign polyps OPERATION: EGD with biopsy SURGEON: ANTOINE DING ANESTHESIA: Moderate Sedation - 3 mg of Versed. Conscious sedation monitoring time 30 minutes. TISSUE REMOVED OR ALTERED: Gastric mucosal specimen rule out for Helicobacter pylori COMPLICATIONS: None. ESTIMATED BLOOD LOSS: None. INTRAOPERATIVE FINDINGS: As noted above. PROCEDURE: Patient tolerated procedure well He sent back to his room in good conditions. No immediate postprocedure complications are noted Resume regular diet advance as tolerated Resume previous activity level Resume previous medications May want to keep INR on the lower side since he has to be on Coumadin Watch for any further bleeding Patient has been taking Tylenol this likely led to exacerbated bleeding Avoid use of Tylenol Discussed case with family Outpatient follow-up
--- NOTE | 2018-08-22 14:53 | PDOC PROGRESS REPORT ---
Subjective Progress Note for:: 08/22/18 Subjective:: AMINATA BILL SR is a 82 year old male past medical history of hypertension, hyperlipidemia, diabetes, chronic low back pain, atrial fibrillation, sick sinus syndrome status post permanent pacemaker. He presented to ED complaining of 2 episodes of melanotic bowel movements, one hour apart. Patient denied having any history of GI bleed or GI malignancy. Complains of chronic left lower quadrant pain. He also was complaining of nausea for which she took Zofran at home. Patient is on Coumadin at home, current INR 2.34. Last colonoscopy about 7 years ago was found polyps. EGD about [address] abdomen and pelvis showed diverticulosis. Hemoglobin 11.9. Chest x- ray shows a small left pleural effusion with atelectasis versus infiltrate in both bases. ED attending is spoke with Dr. Rivers who is the GI transonic engineer and his plan to do EGD on the day of admission. 08/21/2018. No acute events overnight. Patient denies having any melena or hematochezia. Patient's endoscopy was canceled yesterday because of elevated INR. Patient was given 1 dose of vitamin K last night and his warfarin dosage was skipped yesterday. INR today is subtherapeutic however PTT is elevated and his EGD was again canceled by the GI. Yesterday patient was complaining about the fact that his home medications for chronic pain was not restarted. And also he was complaining of itchy and puffy eyes. His home medications were reconciled and restarted and he was given antihistamines p.o. and ophthalmic. Overnight patient has been very pleasant and cooperative. On my encounter today patient is very pleasant and cooperative with physical examination and he is happy with his medical care. He denies having any melena or hematochezia. He has been n.p.o. for EGD today but unfortunately it was canceled again because of his elevated PTT. He denies any fever, chills, nausea, vomiting, shortness of breath, chest pain, abdominal pain, diarrhea, constipation or any urinary symptoms. 08/22/2018. No acute events overnight. Patient is status post upper GI endoscopy. On my encounter in the morning before endoscopy patient was resting quietly and very pleasant and cooperative with physical examination. Stating that he was not getting his pain medications on time overnight otherwise no complaints. Patient has had no more episodes of melena denies any shortness of breath, chest pain, nausea, vomiting, diarrhea, constipation or any urinary symptoms. Reason For Visit: GI BLEEDING Physical Exam Vital Signs: Temp Pulse Resp BP Pulse Ox 98.1 F 66 15 105/57 L 99 08/22/18 10:28 08/22/18 12:00 08/22/18 12:00 08/22/18 12:00 08/22/18 12:00 Intake & Output 08/21/18 08/22/18 08/23/18 06:59 06:59 06:59 Intake Total 1540 1150 250 Output Total 300 Balance 1240 1150 250 Weight 91.2 kg 91.2 kg General appearance: PRESENT: no acute distress, well-developed, well-nourished Head exam: PRESENT: atraumatic, normocephalic Eye exam: PRESENT: conjunctiva pink, EOMI, PERRLA. ABSENT: scleral icterus Ear exam: PRESENT: normal external ear exam Mouth exam: PRESENT: moist, tongue midline Neck exam: ABSENT: carotid bruit, JVD, lymphadenopathy, thyromegaly Respiratory exam: PRESENT: clear to auscultation giuliano. ABSENT: rales, rhonchi, wheezes Cardiovascular exam: PRESENT: RRR. ABSENT: diastolic murmur, rubs, systolic murmur Pulses: PRESENT: normal dorsalis pedis pul Vascular exam: PRESENT: normal capillary refill GI/Abdominal exam: PRESENT: normal bowel sounds, soft. ABSENT: distended, guarding, mass, organolmegaly, rebound, tenderness Rectal exam: PRESENT: deferred Extremities exam: PRESENT: full ROM. ABSENT: calf tenderness, clubbing, pedal edema Neurological exam: PRESENT: alert, awake, oriented to person, oriented to place , oriented to time, oriented to situation, CN II-XII grossly intact. ABSENT: motor sensory deficit Psychiatric exam: PRESENT: appropriate affect, normal mood. ABSENT: homicidal ideation, suicidal ideation Skin exam: PRESENT: dry, intact, warm. ABSENT: cyanosis, rash Results Laboratory Results: 08/22/18 04:40 08/22/18 04:40 08/22/18 08/22/18 04:40 04:40 WBC 6.0 RBC 3.26 L Hgb 10.7 L Hct 31.2 L MCV 96 MCH 32.8 MCHC 34.3 RDW 14.1 H Plt Count 130 L Seg Neutrophils % 66.1 Lymphocytes % 17.4 Monocytes % 8.0 Eosinophils % 8.1 H Basophils % 0.4 Absolute Neutrophils 4.0 Absolute Lymphocytes 1.1 Absolute Monocytes 0.5 Absolute Eosinophils 0.5 Absolute Basophils 0.0 Sodium 139.9 Potassium 3.8 Chloride 106 Carbon Dioxide 26 Anion Gap 8 BUN 16 Creatinine 0.93 Est GFR ( Amer) > 60 Est GFR (Non-Af Amer) > 60 Glucose 129 H Calcium 8.7 Total Bilirubin 1.0 AST 15 L ALT 18 L Alkaline Phosphatase 38 Total Protein 5.2 L Albumin 2.7 L Impressions: Chest X-Ray 08/19/18 21:50 Electronic cardiac device and leads are present. IMPRESSION: Bilateral consolidations. NUMBER OF VIEWS: TECHNIQUE: LIMITATIONS: None. FINDINGS: IMPRESSION: 2010 [employer]- All Rights Reserved Abdomen/Pelvis CT 08/19/18 23:24 IMPRESSION: Diverticulosis without evidence of diverticulitis Enlarged heart Absent gallbladder Additional changes as above Assessment & Plan - Diagnosis (1) GI bleed Qualifiers: GI bleed type/associated pathology: unspecified gastrointestinal hemorrhage type Qualified Code(s): K92.2 - Gastrointestinal hemorrhage, unspecified Is this a current diagnosis for this admission?: Yes Plan: Status post successful upper GI endoscopy. H&H is stable. Follow-up biopsy result. (2) Chronic back pain Qualifiers: Back pain location: low back pain Is this a current diagnosis for this admission?: No Plan: Patient has had multiple back surgery. Restart home medications. (3) Chronic atrial fibrillation Is this a current diagnosis for this admission?: Yes Plan: Rate controlled. Restart warfarin today. INR goal 2-2.5. INR tomorrow. Monitor for bleeding. ABG tomorrow. (4) Diabetes mellitus Is this a current diagnosis for this admission?: No Plan: Controlled. Fasting blood glucose within normal limits. Accu-Chek, sliding scale and diabetic diet. (5) HTN (hypertension) Is this a current diagnosis for this admission?: No Plan: Euvolemic, normotensive, restart home meds adjust meds as needed. (6) Dyslipidemia Is this a current diagnosis for this admission?: No Plan: Restart statins. (7) BPH (benign prostatic hyperplasia) Is this a current diagnosis for this admission?: No Plan: Restart home meds. (8) Chronic constipation Is this a current diagnosis for this admission?: No Plan: Likely due to chronic opioid use. Restart bowel regimen.
[2018-08-22] MEDS ORDERED: (PENDING PHARMACY ID) (Warfarin Sodium 5 MG) PO SCH (18:30)
[2018-08-22] MEDS ORDERED: WARFARIN SODIUM 5 MG TABLET PO SCH (22:00)
[2018-08-23 05:46] LABS: ABSOLUTE EOSINOPHILS # (AUTO) 0.5 10^3/uL (0.0-0.6); ABSOLUTE LYMPHOCYTES (AUTO) 1.2 10^3/uL (0.5-4.7); ABSOLUTE MONOCYTES (AUTO) 0.5 10^3/uL (0.1-1.4); ABSOLUTE NEUT (AUTO) 4.3 10^3/uL (1.7-8.2); BASOPHILS % (AUTO) 0.4 % (0-2); EOSINOPHILS % (AUTO) 7.9 % (0-6); HEMATOCRIT 31.1 % (37.9-51.0); HEMOGLOBIN 10.6 g/dL (13.5-17.0); LYMPHOCYTES % (AUTO) 17.7 % (13-45); MEAN CORPUSCULAR HEMOGLOBIN 32.5 pg (27.0-33.4); MEAN CORPUSCULAR HGB CONC 33.9 g/dL (32.0-36.0); MEAN CORPUSCULAR VOLUME 96 fl (80-97); MONOCYTES % (AUTO) 7.6 % (3-13); PLATELET COUNT 142 10^3/uL (150-450); RED BLOOD COUNT 3.25 10^6/uL (4.35-5.55); RED CELL DISTRIBUTION WIDTH 13.8 % (11.5-14.0); SEGMENTED NEUTROPHILS % (AUTO) 66.4 % (42-78); TOTAL CELLS COUNTED % (AUTO) 100 %; WHITE BLOOD COUNT 6.5 10^3/uL (4.0-10.5)
[2018-08-23 05:51] LABS: INTERNATIONAL RATION (INR) 1.18; PROTHROMBIN TIME 15.6 SEC (11.4-15.4)
[2018-08-23 06:09] LABS: ALANINE AMINOTRANSFERASE 13 U/L (21-72); ALBUMIN 2.7 g/dL (3.5-5.0); ALKALINE PHOSPHATASE 37 U/L (38-126); ANION GAP 8 (5-19); ASPARTATE AMINO TRANSFERASE 14 U/L (17-59); BILIRUBIN,DIRECT 0.1 mg/dL (0.0-0.4); BILIRUBIN,TOTAL 0.7 mg/dL (0.2-1.3); BLOOD UREA NITROGEN 18 mg/dL (7-20); CALCIUM 8.5 mg/dL (8.4-10.2); CARBON DIOXIDE 26 mmol/L (22-30); CHLORIDE 105 mmol/L (98-107); GLUCOSE 130 mg/dL (75-110); POTASSIUM 3.9 mmol/L (3.6-5.0); SODIUM 138.6 mmol/L (137-145); TOTAL PROTEIN 5.2 g/dL (6.3-8.2)
[2018-08-23] MEDS: METOPROLOL TARTRATE 25 MG TABLET PO SCH (09:24)
[2018-08-23] MEDS: GABAPENTIN 300 MG CAPSULE PO SCH (09:24)
[2018-08-23] MEDS: DOCUSATE SODIUM 100 MG CAPSULE PO SCH (09:25)
[2018-08-23] MEDS: FINASTERIDE 5 MG TABLET PO SCH (09:25)
[2018-08-23] MEDS: FLUTICASONE PROPIONATE HFA 110 MCG/PUFF 12 GM MDI IH SCH (09:25)
[2018-08-23] MEDS: OLOPATADINE HCL 0.1% OPH SOLN 5 ML OU SCH (09:25)
[2018-08-23] MEDS: MORPHINE SULFATE SR 30 MG TABLET PO SCH (09:27)
[2018-08-23] MEDS: AMLODIPINE BESYLATE 10 MG TABLET PO SCH (09:27)
[2018-08-23] MEDS: DOXAZOSIN MESYLATE 4 MG TABLET PO SCH (09:29)
[2018-08-23] MEDS: OXYCODONE HCL IR 5 MG TABLET PO SCH (09:29)
[2018-08-23] MEDS: POLYETHYLENE GLYCOL 3350 POWDER 17 GM/1 PACKET PO SCH (09:30)
--- NOTE | 2018-08-23 10:45 | PDOC DISCHARGE SUMMARY ---
General - Admit/Disc Date/PCP Admission Date/Primary Care Provider: 08/20/18 03:59 GREY MCMULLEN MD Discharge Date: 08/23/18 - Discharge Diagnosis (1) GI bleed Is this a current diagnosis for this admission?: Yes (2) Chronic back pain Is this a current diagnosis for this admission?: No (3) Chronic atrial fibrillation Is this a current diagnosis for this admission?: No (4) Diabetes mellitus Is this a current diagnosis for this admission?: No (5) HTN (hypertension) Is this a current diagnosis for this admission?: No (6) Dyslipidemia Is this a current diagnosis for this admission?: No (7) BPH (benign prostatic hyperplasia) Is this a current diagnosis for this admission?: No (8) Chronic constipation Is this a current diagnosis for this admission?: No - Additional Information Resuscitation Status: Do Not Resuscitate Discharge Diet: As Tolerated Discharge Activity: Activity As Tolerated Home Medications: Albuterol Sulfate [Proair HFA Inhalation Aerosol 8.5 gm MDI] 1 puff IH Q6HP PRN 08/20/18 Amlodipine Besylate [Norvasc 5 mg Tablet] 5 mg PO DAILY 08/20/18 Finasteride [Proscar 5 mg Tablet] 5 mg PO DAILY 08/20/18 Finasteride [Proscar 5 mg Tablet] 5 mg PO DAILY 08/20/18 Fluticasone Propionate [Flonase Nasal [place] 50 Mcg/[place] 16 gm] 1 spray NASL DAILY 08/20/18 Fluticasone/Vilanterol [Breo Ellipta 200-25 Mcg INH] 1 puff IH DAILY 08/20/18 Gabapentin [Neurontin 300 mg Capsule] 300 mg PO Q12 08/20/18 Metoprolol Tartrate [Lopressor 25 mg Tablet] 25 mg PO Q12 08/20/18 Polyethylene Glycol 3350 [Miralax Powder 17 gm/Packet] 17 gm PO DAILY 08/20/18 Terbinafine HCl [Lamisil 250 mg Tablet] 375 mg PO DAILY 08/20/18 Triamterene/Hydrochlorothiazid [Triamterene-Hctz 37.5-25 mg Tb] 1 tab PO DAILY 08/20/18 Warfarin Sodium [Coumadin 5 mg Tablet] 5 mg PO DAILY 08/22/18 History of Present Illness Patient complains of: Melena History of Present Illness: AMINATA BILL SR is a 82 year old male past medical history of hypertension, hyperlipidemia, diabetes, chronic low back pain, atrial fibrillation, sick sinus syndrome status post permanent pacemaker. He presented to ED complaining of 2 episodes of melanotic bowel movements, one hour apart. Patient denied having any history of GI bleed or GI malignancy. Complains of chronic left lower quadrant pain. He also was complaining of nausea for which she took Zofran at home. Patient is on Coumadin at home, current INR 2.34. Last colonoscopy about 7 years ago was found polyps. EGD about [address] results[address] abdomen and pelvis showed diverticulosis. Hemoglobin 11.9. Chest x- ray shows a small left pleural effusion with atelectasis versus infiltrate in both bases. ED attending is spoke with Dr. Rivers who is the GI aviation project engineer and his plan to do EGD on the day of admission. Hospital Course Hospital Course: (1) GI bleed Status post successful upper GI endoscopy. H&H is stable. Follow-up biopsy result. (2) Chronic back pain Patient has had multiple back surgery. Started on home medications. (3) Chronic atrial fibrillation Rate controlled. Warfarin was held for GI procedure and restarted postprocedure. INR goal 2-2.5. She was asked to follow-up with PCP and INR clinic on Saturday to check his INR. 4) Diabetes mellitus Controlled. Fasting blood glucose within normal limits. Accu-Chek, sliding scale and diabetic diet. Start home meds on discharge. (5) HTN (hypertension) Euvolemic, normotensive, restart home meds adjust meds as needed. (6) Dyslipidemia Started on statins. (7) BPH (benign prostatic hyperplasia) Started on home meds. (8) Chronic constipation Likely due to chronic opioid use. Started on home bowel regimens. Physical Exam Vital Signs: Temp Pulse Resp BP Pulse Ox 97.6 F 60 17 141/53 H 98 08/23/18 07:12 08/23/18 07:12 08/23/18 03:13 08/23/18 07:12 08/23/18 07:12 Intake & Output 08/22/18 08/23/18 08/24/18 06:59 06:59 06:59 Intake Total 1150 1490 627 Output Total 560 Balance 1150 930 627 Weight 91.2 kg 90 kg General appearance: PRESENT: no acute distress, well-developed, well-nourished Head exam: PRESENT: atraumatic, normocephalic Eye exam: PRESENT: conjunctiva pink, EOMI, PERRLA. ABSENT: scleral icterus Ear exam: PRESENT: normal external ear exam Mouth exam: PRESENT: moist, tongue midline Neck exam: ABSENT: carotid bruit, JVD, lymphadenopathy, thyromegaly Respiratory exam: PRESENT: clear to auscultation giuliano. ABSENT: rales, rhonchi, wheezes Cardiovascular exam: PRESENT: RRR. ABSENT: diastolic murmur, rubs, systolic murmur Pulses: PRESENT: normal dorsalis pedis pul Vascular exam: PRESENT: normal capillary refill GI/Abdominal exam: PRESENT: normal bowel sounds, soft. ABSENT: distended, guarding, mass, organolmegaly, rebound, tenderness Rectal exam: PRESENT: deferred Extremities exam: PRESENT: full ROM. ABSENT: calf tenderness, clubbing, pedal edema Neurological exam: PRESENT: alert, awake, oriented to person, oriented to place , oriented to time, oriented to situation, CN II-XII grossly intact. ABSENT: motor sensory deficit Psychiatric exam: PRESENT: appropriate affect, normal mood. ABSENT: homicidal ideation, suicidal ideation Skin exam: PRESENT: dry, intact, warm. ABSENT: cyanosis, rash Results Laboratory Results: 08/23/18 04:06 08/23/18 04:06 08/23/18 08/23/18 04:06 04:06 WBC 6.5 RBC 3.25 L Hgb 10.6 L Hct 31.1 L MCV 96 MCH 32.5 MCHC 33.9 RDW 13.8 Plt Count 142 L Seg Neutrophils % 66.4 Lymphocytes % 17.7 Monocytes % 7.6 Eosinophils % 7.9 H Basophils % 0.4 Absolute Neutrophils 4.3 Absolute Lymphocytes 1.2 Absolute Monocytes 0.5 Absolute Eosinophils 0.5 Absolute Basophils 0.0 Sodium 138.6 Potassium 3.9 Chloride 105 Carbon Dioxide 26 Anion Gap 8 BUN 18 Creatinine 0.95 Est GFR ( Amer) > 60 Est GFR (Non-Af Amer) > 60 Glucose 130 H Calcium 8.5 Total Bilirubin 0.7 AST 14 L ALT 13 L Alkaline Phosphatase 37 L Total Protein 5.2 L Albumin 2.7 L Impressions: Chest X-Ray 08/19/18 21:50 Electronic cardiac device and leads are present. IMPRESSION: Bilateral consolidations. NUMBER OF VIEWS: TECHNIQUE: LIMITATIONS: None. FINDINGS: IMPRESSION: 2010 [employer] [facility]- All Rights Reserved Abdomen/Pelvis CT 08/19/18 23:24 IMPRESSION: Diverticulosis without evidence of diverticulitis Enlarged heart Absent gallbladder Additional changes as above Qualifiers - * PATIENT BEING DISCHARGED WITH ANY OF THE FOLLOWING DIAGNOSIS: No VTE patient discharged on overlapping Therapy?: Yes
[2018-08-23 11:08] VITALS: BP 136/95
== END 2018-08-23 11:35 | disposition home or self-care (01) | DRG 379 ==
LOC: ER 20:16 → EH 08-20 03:59 → 4N 08-20 05:34
PROVIDERS: ADMIT Internal Medicine; ATTEND Internal Medicine
PROC: 3E0F73Z Introduction of Anti-inflammatory into Respiratory Tract, Via Natural or Artificial Opening (ICD-10-PCS; 2018-08-20)
PROC: 0DB68ZX Excision of Stomach, Via Natural or Artificial Opening Endoscopic, Diagnostic (ICD-10-PCS; principal; 2018-08-22 12:00)
DX: K29.71 Gastritis, unspecified, with bleeding (principal); G89.29 Other chronic pain; M54.5 Low back pain; I48.2 Chronic atrial fibrillation; Z66 Do not resuscitate; E11.9 Type 2 diabetes mellitus without complications; I10 Essential (primary) hypertension; E78.5 Hyperlipidemia, unspecified; N40.0 Benign prostatic hyperplasia without lower urinary tract symptoms; Z79.01 Long term (current) use of anticoagulants; K59.03 Drug induced constipation; T40.2X5A Adverse effect of other opioids, initial encounter; I25.10 Atherosclerotic heart disease of native coronary artery without angina pectoris; J44.9 Chronic obstructive pulmonary disease, unspecified; K31.7 Polyp of stomach and duodenum; K57.90 Diverticulosis of intestine, part unspecified, without perforation or abscess without bleeding; M19.90 Unspecified osteoarthritis, unspecified site; Z95.0 Presence of cardiac pacemaker; Z90.49 Acquired absence of other specified parts of digestive tract; Z86.010 Personal history of colon polyps; Z79.899 Other long term (current) drug therapy; Z79.891 Long term (current) use of opiate analgesic
CPT/HCPCS: 36415; 43239; 71045; 74177; 80053; 81001; 82272; 82962; 83690; 83735; 85025; 85027; 85610; 85730; 86850; 86900; 86901; 87040; 88305; 96361; 96365; 99285; J0171; J1200; J1610; J1956; J2250; J2310; J2405; J3010; J3490; J7030; J7060; S0164

== ENCOUNTER 2018-10-03 07:45 | Day surgery (SDC) | payer MEDICARE, BC ==
[~2018-10-03 07:45] MED LIST: DIPHENHYDRAMINE HCL 50 MG/ML VIAL ONE; EPINEPHRINE INJ 1 MG/10 ML DISP.SYRIN ONE; FENTANYL CITRATE INJ/PF 100 MCG/2 ML AMPUL ONE; FLUMAZENIL INJ 0.5 MG/5 ML VIAL ONE; GLUCAGON,HUMAN RECOMB 1 MG INJ ONE; NALOXONE HCL INJ/PF 0.4 MG/1 ML SDV ONE; ONDANSETRON HCL INJ/PF 4 MG/2 ML SDV ONE
[2018-10-03] MEDS: MIDAZOLAM 2 MG/2 ML INJ ONE ×3 (08:13→08:30)
--- NOTE | 2018-10-03 08:49 | Operative Report ---
Operative Report DATE OF SURGERY: 10/03/18 Operative Report: The risks, benefits and alternatives of the procedure including the risks of bleeding, perforation requiring surgery are explained to the patient in detail and informed consent was obtained. The patient is brought to the endoscopy suite and placed in the left, lateral decubital position. Timeout was called. Conscious sedation medications are provided. Rectal examination is done which did not reveal any masses, tears or fissures. An Olympus videoscope was introduced into the patient's rectum. The scope was then carefully advanced all the way to the cecum. The cecum was identified by the usual anatomical landmarks of the ileocecal valve as well as the appendiceal office. Photodocumentation is obtained. Prep is good. Scope was then sequentially pulled back through the various segments of the colon including the ascending colon, hepatic flexure, transverse colon, splenic flexure, descending colon and finally into the rectosigmoid portions of the colon. Retroflexion maneuver is performed. PREOPERATIVE DIAGNOSIS: Possible GI bleeding. 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 Diverticulosis without any evidence of diverticulitis. No active bleeding noted. Internal hemorrhoids. Cecal polyp that was removed via snare polypectomy OPERATION: Colonoscopy with snare polypectomy SURGEON: ANTOINE DING ANESTHESIA: Moderate Sedation - 4 mg of Versed, 25 mcg of fentanyl. Conscious sedation monitoring time 30 minutes. TISSUE REMOVED OR ALTERED: As noted above. COMPLICATIONS: None. ESTIMATED BLOOD LOSS: None. INTRAOPERATIVE FINDINGS: As noted above. PROCEDURE: Patient tolerated the procedure well. No immediate postprocedure complications are noted. Patient discharged in good condition. Discharge date 10/03/2018. Discharge diet: Regular. Discharge activity: Regular. 2-3-week follow-up to discuss findings. Patient is instructed to call the office or proceed to the emergency room should there be any further problems or questions. Wait on pathology. Surveillance colonoscopy technically indicated in 5 years however given the patient's age and overall clinical condition is likely can be deferred
[2018-10-03 09:51] VITALS: BP 156/63
== END 2018-10-03 09:55 | disposition home or self-care (01) ==
LOC: END 07:45
PROVIDERS: ATTEND Internal Medicine Gastroenterology
DX: K57.90 Diverticulosis of intestine, part unspecified, without perforation or abscess without bleeding (principal); K63.89 Other specified diseases of intestine; K64.8 Other hemorrhoids; D12.0 Benign neoplasm of cecum
CPT/HCPCS: 45385; 82962; 88305 ×2; J2250; J3010; J0171; J1200; J1610; J2310; J2405; J3490

== ENCOUNTER → 2018-12-09 | Outpatient (CLI) | payer MEDICARE, BC ==
[2018-12-09 13:42] LABS: ABSOLUTE EOSINOPHILS # (AUTO) 0.5 10^3/uL (0.0-0.6); ABSOLUTE MONOCYTES (AUTO) 0.6 10^3/uL (0.1-1.4); ABSOLUTE NEUT (AUTO) 4.7 10^3/uL (1.7-8.2); BASOPHILS % (AUTO) 0.4 % (0-2); EOSINOPHILS % (AUTO) 7.3 % (0-6); HEMATOCRIT 35.1 % (37.9-51.0); HEMOGLOBIN 11.6 g/dL (13.5-17.0); LYMPHOCYTES % (AUTO) 14.8 % (13-45); MEAN CORPUSCULAR HEMOGLOBIN 30.2 pg (27.0-33.4); MEAN CORPUSCULAR HGB CONC 33.2 g/dL (32.0-36.0); MEAN CORPUSCULAR VOLUME 91 fl (80-97); MONOCYTES % (AUTO) 8.5 % (3-13); PLATELET COUNT 188 10^3/uL (150-450); RED BLOOD COUNT 3.85 10^6/uL (4.35-5.55); RED CELL DISTRIBUTION WIDTH 14.8 % (11.5-14.0); TOTAL CELLS COUNTED % (AUTO) 100 %; WHITE BLOOD COUNT 6.9 10^3/uL (4.0-10.5)
[2018-12-09 13:48] LABS: INTERNATIONAL RATION (INR) 1.24; PROTHROMBIN TIME 16.2 SEC (11.4-15.4)
[2018-12-09 14:02] LABS: ANION GAP 11 (5-19); BLOOD UREA NITROGEN 33 mg/dL (7-20); CARBON DIOXIDE 29 mmol/L (22-30); CHLORIDE 99 mmol/L (98-107); GLUCOSE 220 mg/dL (75-110); POTASSIUM 4.1 mmol/L (3.6-5.0); SODIUM 139.1 mmol/L (137-145)
== END ==
LOC: OD 12:50
PROVIDERS: ATTEND Internal Medicine
DX: I35.0 Nonrheumatic aortic (valve) stenosis (principal)
CPT/HCPCS: 36415; 80048; 83735; 85025; 85610

== ENCOUNTER → 2018-12-18 | Outpatient (CLI) | payer MEDICARE, BC ==
[2018-12-18 13:48] LABS: ANION GAP 7 (5-19); BLOOD UREA NITROGEN 31 mg/dL (7-20); CALCIUM 9.7 mg/dL (8.4-10.2); CARBON DIOXIDE 32 mmol/L (22-30); CHLORIDE 103 mmol/L (98-107); GLUCOSE 226 mg/dL (75-110); POTASSIUM 4.5 mmol/L (3.6-5.0); SODIUM 141.7 mmol/L (137-145)
== END ==
LOC: OD 12:54
PROVIDERS: ATTEND Internal Medicine
DX: I50.9 Heart failure, unspecified (principal)
CPT/HCPCS: 36415; 80048

== ENCOUNTER → 2019-01-26 | Outpatient (CLI) | payer MEDICARE, BC ==
[2019-01-26 17:39] LABS: ANION GAP 9 (5-19); BLOOD UREA NITROGEN 40 mg/dL (7-20); CALCIUM 9.6 mg/dL (8.4-10.2); CARBON DIOXIDE 31 mmol/L (22-30); CHLORIDE 98 mmol/L (98-107); GLUCOSE 177 mg/dL (75-110); POTASSIUM 4.5 mmol/L (3.6-5.0); SODIUM 138.1 mmol/L (137-145)
== END ==
LOC: OD 16:55
PROVIDERS: ATTEND Internal Medicine Cardiovascular Disease
DX: I50.9 Heart failure, unspecified (principal)
CPT/HCPCS: 36415; 80048

== ENCOUNTER → 2019-04-14 | Outpatient (CLI) | payer MEDICARE, BC ==
[2019-04-14 16:17] LABS: ANION GAP 10 (5-19); BLOOD UREA NITROGEN 52 mg/dL (7-20); CALCIUM 9.3 mg/dL (8.4-10.2); CARBON DIOXIDE 31 mmol/L (22-30); CHLORIDE 95 mmol/L (98-107); GLUCOSE 306 mg/dL (75-110); POTASSIUM 4.8 mmol/L (3.6-5.0); SODIUM 136.4 mmol/L (137-145)
== END ==
LOC: OD 14:49
PROVIDERS: ATTEND Internal Medicine Cardiovascular Disease
DX: I10 Essential (primary) hypertension (principal)
CPT/HCPCS: 36415; 80048

== ENCOUNTER 2019-09-28 18:07 | Emergency (ER) | payer MEDICARE, BC ==
--- NOTE | 2019-09-28 18:30 | RADIOLOGY REPORT (SQ) ---
EXAM DESCRIPTION: CHEST 2 VIEWS COMPLETED DATE/TIME: 09/28/2019 6:22 pm REASON FOR STUDY: bed 3 congestion COMPARISON: 08/19/2018 EXAM PARAMETERS: NUMBER OF VIEWS: two views TECHNIQUE: Digital Frontal and Lateral radiographic views of the chest acquired. RADIATION DOSE: NA LIMITATIONS: none FINDINGS: LUNGS AND PLEURA: No opacities, masses or pneumothorax. No pleural effusion. MEDIASTINUM AND HILAR STRUCTURES: No masses or contour abnormalities. HEART AND VASCULAR STRUCTURES: Heart normal size. No evidence for failure. BONES: No acute findings. HARDWARE: Pacemaker. OTHER: No other significant finding. IMPRESSION: NO ACUTE RADIOGRAPHIC FINDING IN THE CHEST. TECHNICAL DOCUMENTATION: JOB ID: [id number] [employer]- All Rights Reserved Reading location - IP/workstation name: [email or web address]
[2019-09-28 18:45] LABS: ABSOLUTE EOSINOPHILS # (AUTO) 0.3 10^3/uL (0.0-0.6); ABSOLUTE LYMPHOCYTES (AUTO) 0.9 10^3/uL (0.5-4.7); ABSOLUTE MONOCYTES (AUTO) 0.3 10^3/uL (0.1-1.4); ABSOLUTE NEUT (AUTO) 3.6 10^3/uL (1.7-8.2); BASOPHILS % (AUTO) 0.6 % (0-2); EOSINOPHILS % (AUTO) 6.2 % (0-6); HEMATOCRIT 36.3 % (37.9-51.0); LYMPHOCYTES % (AUTO) 17.2 % (13-45); MEAN CORPUSCULAR HEMOGLOBIN 31.5 pg (27.0-33.4); MEAN CORPUSCULAR VOLUME 95 fl (80-97); MONOCYTES % (AUTO) 6.2 % (3-13); PLATELET COUNT 124 10^3/uL (150-450); RED BLOOD COUNT 3.81 10^6/uL (4.35-5.55); SEGMENTED NEUTROPHILS % (AUTO) 69.8 % (42-78); TOTAL CELLS COUNTED % (AUTO) 100 %; WHITE BLOOD COUNT 5.2 10^3/uL (4.0-10.5)
[2019-09-28 19:03] LABS: APPEARANCE,URINE CLEAR; BILIRUBIN,URINE NEGATIVE (NEGATIVE); COLOR,URINE YELLOW; GLUCOSE, URINE 150 mg/dL (NEGATIVE); KETONES,URINE NEGATIVE (NEGATIVE); LEUKOCYTE ESTERASE,URINE NEGATIVE (NEGATIVE); NITRITE,URINE NEGATIVE (NEGATIVE); PROTEIN,URINE NEGATIVE (NEGATIVE); URINE SPECIFIC GRAVITY 1.013; UROBILINOGEN,URINE NEGATIVE mg/dL (<2.0)
[2019-09-28 19:09] LABS: ANION GAP 7 (5-19); BLOOD UREA NITROGEN 41 mg/dL (7-20); CALCIUM 9.5 mg/dL (8.4-10.2); CARBON DIOXIDE 32 mmol/L (22-30); CHLORIDE 98 mmol/L (98-107); GLUCOSE 255 mg/dL (75-110); POTASSIUM 4.1 mmol/L (3.6-5.0)
[2019-09-28] MEDS ORDERED: NORMAL SALINE 1000 ML 1,000 ML IV PRN (20:24)
[2019-09-28] MEDS ORDERED: ONDANSETRON HCL INJ/PF 4 MG/2 ML SDV IV ONE (20:25)
[2019-09-28] MEDS ORDERED: FAMOTIDINE 20 MG TABLET PO ONE (20:25)
--- NOTE | 2019-09-28 20:25 | ER Document Report ---
ED General - General Chief Complaint: Shortness Of Breath Stated Complaint: COLD SYMPTOMS Time Seen by Provider: 09/28/19 20:13 Primary Care Provider: GREY MCMULLEN MD [Primary Care Provider] - Follow up as needed Notes: Patient is a 83 year old male that comes to the Emergency Department for chief complaint of eating less, feeling weak, and he states earlier today he felt pain in the left side of his abdomen. He states the pain in the abdomen resolved, he felt some nausea but he denies vomiting. He states he has felt bad ever since he completed 2 courses of prednisone that he was given for a gout flare up. He denies abnormal bowel movements (but is frequently constipated from chronic opiates for his back), he denies fever, chest pain, shortness of breath. TRAVEL OUTSIDE OF THE [place] IN LAST 30 DAYS: No - Related Data Allergies/Adverse Reactions: No Known Allergies Allergy (Verified 10/03/18 07:48) Past Medical History - General Information source: Patient - Social History Smoking Status: Never Smoker Frequency of alcohol use: None Drug Abuse: None Lives with: Family Family History: Reviewed & Not Pertinent Patient has suicidal ideation: No Patient has homicidal ideation: No - Past Medical History Cardiac Medical History: Reports: Hx Atrial Fibrillation, Hx Coronary Artery Disease, Hx Hypertension Denies: Hx Congestive Heart Failure, Hx Heart Attack, Hx Heart Murmur Pulmonary Medical History: Reports: Hx Asthma, Hx COPD, Hx Pneumonia Denies: Hx Bronchitis, Hx Tuberculosis Neurological Medical History: Denies: Hx Cerebrovascular Accident, Hx Seizures Endocrine Medical History: Reports: Hx Diabetes Mellitus Type 2 Renal/ Medical History: Denies: Hx Peritoneal Dialysis GI Medical History: Musculoskeletal Medical History: Reports Hx Arthritis Infectious Medical History: Past Surgical History: Reports: Hx Appendectomy, Hx Cholecystectomy, Hx Pacemaker, Hx Tonsillectomy - Immunizations Hx Diphtheria, Pertussis, Tetanus Vaccination: Yes Hx Pneumococcal Vaccination: 02/02/06 Review of Systems - Review of Systems Constitutional: See HPI EENT: No symptoms reported Cardiovascular: See HPI Respiratory: No symptoms reported Gastrointestinal: See HPI Genitourinary: No symptoms reported Male Genitourinary: No symptoms reported Musculoskeletal: No symptoms reported Skin: No symptoms reported Hematologic/Lymphatic: No symptoms reported Neurological/Psychological: No symptoms reported Physical Exam - Vital signs Vitals: Temp 97.5 F 09/28/19 18:08 - Notes Notes: GENERAL: Alert, interacts well. No acute distress. HEAD: Normocephalic, atraumatic. EYES: Pupils equal, round, and reactive to light. Extraocular movements intact. ENT: Oral mucosa very dry, tongue midline. Oropharynx unremarkable. Airway patent. NECK: Full range of motion. Supple. Trachea midline. LUNGS: Clear to auscultation bilaterally, no wheezes, rales, or rhonchi. No respiratory distress. HEART: Regular rate and rhythm. No murmur ABDOMEN: There is mild mid to left upper quadrant tenderness, no guarding, no rigidity, no rebound tenderness. Bowel sounds present throughout. GENITOURINARY: No swelling or concerning findings noted EXTREMITIES: Moves all 4 extremities spontaneously. No edema, normal radial and dorsalis pedis pulses bilaterally. No cyanosis. BACK: no cervical, thoracic, lumbar midline tenderness. No saddle anesthesia, normal distal neurovascular exam. Moves all extremities in full range of motion. NEUROLOGICAL: Alert and oriented x3. Normal speech. Cranial nerves II through XII grossly intact. PSYCH: Normal affect, normal mood. SKIN: Warm, dry, normal turgor. No rashes or lesions noted. Course - Re-evaluation Re-evalutation: Patient has very minimal tenderness in the location that he indicates in the left mid abdomen, no rigidity or rebound tenderness, he is well-appearing and conversational, his exam is normal other than dry mucous membranes. Given IV fluids, Zofran, Pepcid, after this symptoms improved but did not completely resolve. CBC, chemistry nonspecific with mild hyperglycemia but no acidosis. BUN is slightly elevated. LFTs unremarkable, lipase is not elevated. Troponin indet erminate, EKG without significant change from prior, patient again denies having any chest pain despite me questioning specifically because of initial report from triage. Chest x-ray unremarkable. I discussed with patient and family at bedside. Because of his age and abdominal pain decision was made to proceed with CAT scan to rule out acute etiology. CT negative, patient tolerated p.o. fluids without any difficulty, no current complaints on reevaluation. Discussed follow-up, expectations, return precautions. They state appreciation and agreement. Stable at time of discharge. - Vital Signs Vital signs: Temp Pulse Resp BP Pulse Ox 97.7 F 21 H 141/67 H 96 09/29/19 02:20 09/29/19 02:20 09/29/19 02:20 09/29/19 02:20 - Laboratory Result Diagrams: 09/28/19 18:15 09/28/19 18:15 Laboratory results interpreted by me: 09/28/19 09/28/19 09/28/19 18:15 18:15 18:15 RBC 3.81 L Hgb 12.0 L Hct 36.3 L RDW 16.0 H Plt Count 124 L Eos % (Auto) 6.2 H Carbon Dioxide 32 H BUN 41 H Est GFR (MDRD) Non-Af 59 L Glucose 255 H Total Protein Albumin Urine Glucose (UA) 150 H 09/28/19 18:15 RBC Hgb Hct RDW Plt Count Eos % (Auto) Carbon Dioxide BUN Est GFR (MDRD) Non-Af Glucose Total Protein 5.6 L Albumin 3.0 L Urine Glucose (UA) - EKG Interpretation by Me Additional EKG results interpreted by me: EKG shows paced rhythm at a rate of 65, no overt T wave or ST segment changes compared to prior, no significant change compared to prior. Discharge - Discharge Clinical Impression: Dehydration, Generalized weakness Abdominal pain Qualifiers: Abdominal location: generalized Qualified Code(s): R10.84 - Generalized abdominal pain Condition: Stable Disposition: HOME, SELF-CARE Additional Instructions: You have been rehydrated. Your generalized work-up is does not show any concerning findings at this time. Please follow close with your primary care provider. Take the nausea medication if needed. Return if you worsen including return to pain, vomiting, fever, or any other concerning or worsening symptoms. Prescriptions: Ondansetron [Zofran Odt 4 mg Tablet] 1 tab PO Q4H PRN #12 tab.rapdis PRN Reason: For Nausea/Vomiting Referrals: GREY MCMULLEN MD [Primary Care Provider] - Follow up as needed
[2019-09-28 22:03] LABS: ALKALINE PHOSPHATASE 54 U/L (38-126); ASPARTATE AMINO TRANSFERASE 19 U/L (17-59); BILIRUBIN,DIRECT 0.1 mg/dL (0.0-0.4); BILIRUBIN,TOTAL 0.3 mg/dL (0.2-1.3); TOTAL PROTEIN 5.6 g/dL (6.3-8.2)
--- NOTE | 2019-09-28 23:47 | EKG REPORT ---
SEVERITY:- ABNORMAL ECG - AFIB/FLUTTER AND VENTRICULAR-PACED RHYTHM : Confirmed by: Scot Steiner 28-Sep-2019 23:46:35
--- NOTE | 2019-09-29 01:17 | RADIOLOGY REPORT (SQ) ---
EXAM: CT abdomen and pelvis with IV contrast CLINICAL DATA: 83-year-old male with left-sided abdominal pain TECHNICAL DATA: Axial CT imaging of the abdomen and pelvis was performed following the administration of intravenous contrast.. Sagittal and coronal reconstructed images were then performed. The CT study is performed according to ALARA (as low as reasonably achievable) or ALARA/IMAGE GENTLY, with automatic adjustment of mA and/or kV according to patient size. Performed on: 09/29/2019 at 12:25 AM. Comparison: 08/20/2018 FINDINGS: Lung bases: There is mild bibasilar atelectasis and/or fibrosis, similar when compared to the prior study. There are no pleural effusions. The heart is enlarged. A pacemaker is noted extending into the right ventricle. There are moderate coronary artery calcifications and aortic valve calcifications. Liver:The liver is normal in size and configuration. No focal hepatic abnormalities are identified. Liver attenuation is within normal limits. Spleen:The spleen is normal is size, configuration and attenuation. Gallbladder and bile duct: The gallbladder is surgically absent. There is no biliary ductal dilatation. Pancreas: The pancreas is grossly normal in size and configuration. Adrenal Glands:The adrenal glands are normal in size and configuration. Kidneys:The kidneys are normal in size and configuration. There is no evidence of hydronephrosis. There is no evidence of nephrolithiasis. There are small stable exophytic renal cysts bilaterally. The largest cyst measures approximately 2 cm and arises from the midpole of the left kidney. Stomach:The stomach is grossly normal. There is no definite hiatal hernia. Bowel:The bowel gas pattern is non specific and non obstructive. There is occasional colonic diverticulosis without evidence of santosh diverticulitis. Appendix: There is no CT evidence of acute appendicitis. Free air:There is no evidence of free air. Free fluid: There is no evidence of free fluid. Vasculature: The aorta is normal in caliber and contour. The aorta measures approximately 2.5 cm in maximum diameter. There are atherosclerotic calcifications along the aorta and major branch vessels. The inferior vena cava is grossly unremarkable. Lymphadenopathy: No pathologic lymphadenopathy is identified. Bladder: The bladder is well distended and smooth in contour. Reproductive: The prostate gland is grossly within normal limits. Bones: There are remote postsurgical changes of the lumbar spine consistent with posterior decompression and fusion from L2 through L5. There is no evidence to suggest hardware failure. There are degenerative changes of the thoracolumbar spine. Soft tissues: No acute soft tissue abnormalities are identified. There are small bilateral fat-containing inguinal hernias. IMPRESSION: 1. No evidence of acute intra-abdominal or intrapelvic pathology. 2. There is colonic diverticulosis without evidence of santosh diverticulitis. 3. Chronic bibasilar atelectasis and/or fibrosis. 4. Cardiomegaly. 5. Remote cholecystectomy. 6. Small stable small exophytic renal cysts. 7. Degenerative changes of the skeletal and vascular structures and remote posterior fusion of L2-L5.
[2019-09-29] MEDS ORDERED: NORMAL SALINE 500 ML IV ONE (01:39)
[2019-09-29 02:22] VITALS: BP 141/67
== END 2019-09-29 02:40 | disposition home or self-care (01) ==
LOC: ER 18:07
DX: E86.0 Dehydration (principal); E11.65 Type 2 diabetes mellitus with hyperglycemia; R10.84 Generalized abdominal pain; R53.1 Weakness; R11.0 Nausea; I25.10 Atherosclerotic heart disease of native coronary artery without angina pectoris; I10 Essential (primary) hypertension; J44.9 Chronic obstructive pulmonary disease, unspecified; Z79.891 Long term (current) use of opiate analgesic
CPT/HCPCS: 93005; 99285; 96361; 96374; 36415; 83690; 85025; 80076; 80048; 81001; 84484; 71046; 74177; 93010; A9270; J2405; J7030; J7040

== ENCOUNTER 2019-12-09 08:20 | Emergency (ER) | payer MEDICARE, BC ==
[2019-12-09 09:06] LABS: ABSOLUTE EOSINOPHILS # (AUTO) 0.5 10^3/uL (0.0-0.6); ABSOLUTE LYMPHOCYTES (AUTO) 0.5 10^3/uL (0.5-4.7); ABSOLUTE MONOCYTES (AUTO) 0.5 10^3/uL (0.1-1.4); BASOPHILS % (AUTO) 0.5 % (0-2); EOSINOPHILS % (AUTO) 6.3 % (0-6); HEMATOCRIT 31.1 % (37.9-51.0); HEMOGLOBIN 10.4 g/dL (13.5-17.0); LYMPHOCYTES % (AUTO) 6.9 % (13-45); MEAN CORPUSCULAR HEMOGLOBIN 31.7 pg (27.0-33.4); MEAN CORPUSCULAR HGB CONC 33.3 g/dL (32.0-36.0); MEAN CORPUSCULAR VOLUME 95 fl (80-97); MONOCYTES % (AUTO) 7.1 % (3-13); PLATELET COUNT 164 10^3/uL (150-450); RED BLOOD COUNT 3.28 10^6/uL (4.35-5.55); RED CELL DISTRIBUTION WIDTH 17.4 % (11.5-14.0); SEGMENTED NEUTROPHILS % (AUTO) 79.2 % (42-78); TOTAL CELLS COUNTED % (AUTO) 100 %; WHITE BLOOD COUNT 7.6 10^3/uL (4.0-10.5)
[2019-12-09 09:16] LABS: INTERNATIONAL RATION (INR) 2.38; PROTHROMBIN TIME 26.4 SEC (11.4-15.4)
[2019-12-09 09:23] LABS: ALBUMIN 3.3 g/dL (3.5-5.0); ALKALINE PHOSPHATASE 60 U/L (38-126); ANION GAP 5 (5-19); ASPARTATE AMINO TRANSFERASE 23 U/L (17-59); BILIRUBIN,TOTAL 0.7 mg/dL (0.2-1.3); BLOOD UREA NITROGEN 45 mg/dL (7-20); CALCIUM 9.2 mg/dL (8.4-10.2); CARBON DIOXIDE 31 mmol/L (22-30); CHLORIDE 102 mmol/L (98-107); GLUCOSE 159 mg/dL (75-110); POTASSIUM 4.4 mmol/L (3.6-5.0); TOTAL PROTEIN 6.2 g/dL (6.3-8.2)
--- NOTE | 2019-12-09 10:04 | RADIOLOGY REPORT (SQ) ---
EXAM DESCRIPTION: CT HEAD WITHOUT COMPLETED DATE/TIME: 12/09/2019 9:45 am REASON FOR STUDY: head injury COMPARISON: None. TECHNIQUE: Axial images acquired through the brain without intravenous contrast. Images reviewed wi th bone, brain and subdural windows. Additional sagittal and coronal reconstructions were generated. Images stored on PACS. All CT scanners at this facility use dose modulation, iterative reconstruction, and/or weight based d osing when appropriate to reduce radiation dose to as low as reasonably achievable (ALARA). [facility]: Dose Right [facility]: CareDose [facility]: Dose Right [facility]: Teradose 4D [facility]: [employer] RADIATION DOSE: CT Rad equipment meets quality standard of care and radiation dose reduction techniq ues were employed. CTDIvol: 53.2 mGy. DLP: 1017 mGy-cm. mGy. LIMITATIONS: None. FINDINGS: Diffuse age-appropriate cerebral and cerebellar volume loss. The caliber of the ventricle s is concordant with the degree of sulcation. The confluent areas of hypoattenuation within the supr atentorial periventricular and subcortical white matter are nonspecific and could represent the seque la of chronic microvascular ischemia. There is no acute intracranial hemorrhage, vascular territoria l infarct, extra-axial fluid collection, mass effect or midline shift. There is no effacement of the cerebral sulci or basal subarachnoid cisterns. The taylor-white matter differentiation is preserved. There is mild soft tissue swelling lateral to the left orbit. There is no associated fracture. The paranasal sinuses are clear. There is no fracture of the calvarium. IMPRESSION: 1. Chronic senescent and ischemic findings without a superimposed acute intracranial abn ormality. 2. Mild soft tissue swelling lateral to the left orbit without an associated fracture. EVIDENCE OF ACUTE STROKE: NO. COMMENT: Quality ID # [id number]: Final reports with documentation of one or more dose reduction techniques (e.g., Automated exposure control, adjustment of the mA and/or kV according to patient size, use of iterative reconstruction technique) TECHNICAL DOCUMENTATION: JOB ID: [id number] [employer]- All Rights Reserved Reading location - IP/workstation name: [email or web address]
--- NOTE | 2019-12-09 10:08 | RADIOLOGY REPORT (SQ) ---
EXAM DESCRIPTION: CT CERVICAL SPINE WITHOUT COMPLETED DATE/TIME: 12/09/2019 9:45 am REASON FOR STUDY: FALL COMPARISON: None. TECHNIQUE: Axial images acquired through the cervical spine without intravenous contrast. Images re viewed with lung, soft tissue and bone windows. Reconstructed coronal and sagittal MPR images review ed. Images stored on PACS. All CT scanners at this facility use dose modulation, iterative reconstruction, and/or weight based d osing when appropriate to reduce radiation dose to as low as reasonably achievable (ALARA). [facility]: Dose Right [facility]: CareDose [facility]: Dose Right [facility]: Teradose 4D [facility]: [employer] RADIATION DOSE: CT Rad equipment meets quality standard of care and radiation dose reduction techniq ues were employed. CTDIvol: 19.4 mGy. DLP: 389 mGy-cm. LIMITATIONS: None. FINDINGS: ALIGNMENT: There is reversal of the normal lordotic curvature of the cervical spine with g rade 1 anterolisthesis of C3 relative to C4, C4 relative to C5 and C6 relative to C7. There is no at lantoaxial or craniocervical dissociation. MINERALIZATION: Osteopenia. VERTEBRAL BODIES: The cervical vertebral body heights are preserved. There is no fracture. DISCS: The intervertebral disc spaces from C3-C4 to C7-T1 are narrowed ; at C4-C5 there is partial os seous fusion of the vertebral bodies across the intervertebral disc on the left; and at C4-C5 and C5- C6 there is sclerosis and irregularity of the endplates. In addition, there are posterior disc osteo phyte complexes from C3-C4 to C6-C7 that encroach on the ventral aspect of the thecal sac without mas s effect on the cord. FACETS, LATERAL MASSES, POSTERIOR ELEMENTS: No fracture or malalignment. There are varying degrees o f osteophytic foraminal stenosis from C3-C4 to C6-C7 due to a combination of facet joint arthropathy and uncovertebral hypertrophy. HARDWARE: None in the spine. VISUALIZED RIBS: No fractures. LUNG APICES AND SOFT TISSUES: Atherosclerotic calcification of the carotid bifurcations. 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 IMPRESSION: No fracture or malalignment of the cervical spine. TECHNICAL DOCUMENTATION: JOB ID: [id number] Quality ID # [id number]: Final reports with documentation of one or more dose reduction techniques (e.g., Au tomated exposure control, adjustment of the mA and/or kV according to patient size, use of iterative reconstruction technique) 2010 [employer]- All Rights Reserved Reading location - IP/workstation name: [email or web address]
--- NOTE | 2019-12-09 11:14 | ER Document Report ---
ED Fall - General Chief Complaint: Fall Stated Complaint: FALL,FACIAL INJURY Time Seen by Provider: 12/09/19 10:25 Primary Care Provider: GREY MCMULLEN MD [Primary Care Provider] - Follow up as needed Mode of Arrival: Medic Information source: Patient TRAVEL OUTSIDE OF THE [place] IN LAST 30 DAYS: No - HPI Notes: Patient arrives from home after a fall. Patient is dependent on a scooter for mobility. This is due to multiple back and lower extremity surgeries. He was trying to maneuver out of his scooter when he fell forward and landed on his left elbow and the left side of his face. He is on a blood thinner. Patient c omplains of pain to the left elbow and left side of his face. This pain is mild to moderate. It is worse with movement and better with rest. It does radiate up his left arm and into the left lower side of his face. It is a constant aching pain. - Related data Allergies/Adverse Reactions: No Known Allergies Allergy (Verified 10/03/18 07:48) Home Medications: warfarin Past Medical History - General Information source: Patient - Social History Smoking Status: Never Smoker Frequency of alcohol use: None Drug Abuse: None Family History: Reviewed & Not Pertinent Patient has suicidal ideation: No Patient has homicidal ideation: No - Past Medical History Cardiac Medical History: Reports: Hx Atrial Fibrillation, Hx Coronary Artery Disease, Hx Hypertension Denies: Hx Congestive Heart Failure, Hx Heart Attack, Hx Heart Murmur Pulmonary Medical History: Reports: Hx Asthma, Hx COPD, Hx Pneumonia Denies: Hx Bronchitis, Hx Tuberculosis Neurological Medical History: Denies: Hx Cerebrovascular Accident, Hx Seizures Endocrine Medical History: Reports: Hx Diabetes Mellitus Type 2 Renal/ Medical History: Denies: Hx Peritoneal Dialysis GI Medical History: Musculoskeletal Medical History: Reports Hx Arthritis Infectious Medical History: Past Surgical History: Reports: Hx Appendectomy, Hx Cholecystectomy, Hx Pacemaker, Hx Tonsillectomy - Immunizations Hx Diphtheria, Pertussis, Tetanus Vaccination: Yes Hx Pneumococcal Vaccination: 02/02/06 Review of Systems - Review of Systems Constitutional: denies: Chills, Fever Cardiovascular: denies: Chest pain, Palpitations Respiratory: denies: Cough, Short of breath -: Yes All other systems reviewed and negative Physical Exam - Vital signs Vitals: Resp Pulse Ox 15 94 12/09/19 08:33 12/09/19 08:33 Interpretation: Normal - General General appearance: Appears well, Alert - HEENT Head: Normocephalic, Other - A skin tear is present on the left infraorbital area. Bleeding is controlled. It is not amenable to sutures. Eyes: Normal Extraocular movements intact: Yes Pupils: PERRL Nasal: Normal Mouth/Lips: Normal Mucous membranes: Moist Neck: Normal - Respiratory Respiratory status: No respiratory distress Chest status: Nontender Breath sounds: Normal Chest palpation: Normal - Cardiovascular Rhythm: Regular Heart sounds: Normal auscultation Murmur: No - Abdominal Inspection: Normal Distension: No distension Bowel sounds: Normal Tenderness: Nontender Organomegaly: No organomegaly - Back Back: Normal, Nontender - Extremities General upper extremity: Normal ROM, Normal temperature, Other - Left elbow has a tender skin tear. General lower extremity: Normal inspection, Nontender, Normal color, Normal ROM, Normal temperature. No: Osei's sign - Neurological Neuro grossly intact: Yes Cognition: Normal Orientation: AAOx4 Tamara Coma Scale Eye Opening: Spontaneous [place] Coma Scale Verbal: Oriented [place] Coma Scale Motor: Obeys Commands [place] Coma Scale Total: 15 Speech: Normal Motor strength normal: LUE, RUE, LLE, RLE Sensory: Normal - Psychological Associated symptoms: Normal affect, Normal mood - Skin Skin Temperature: Warm Skin Moisture: Dry Skin Color: Normal, Other - Except as noted above Course - Re-evaluation Re-evalutation: 12/09/19 11:14 Patient arrives after a fall. There is no loss of consciousness. He is on a blood thinner but there is no evidence of intracranial pathology. He has 2 skin tears one on the face and one on the arm that not amenable to sutures. - Vital Signs Vital signs: Temp Pulse Resp BP Pulse Ox 98.7 F 19 125/53 L 100 12/09/19 08:51 12/09/19 08:48 12/09/19 08:48 12/09/19 08:48 - Laboratory Result Diagrams: 12/09/19 08:38 12/09/19 08:38 Laboratory results interpreted by me: 12/09/19 12/09/19 12/09/19 08:38 08:38 08:38 RBC 3.28 L Hgb 10.4 L Hct 31.1 L RDW 17.4 H Lymph % (Auto) 6.9 L Eos % (Auto) 6.3 H Seg Neutrophils % 79.2 H PT 26.4 H Carbon Dioxide 31 H BUN 45 H Est GFR (MDRD) Non-Af 58 L Glucose 159 H Total Protein 6.2 L Albumin 3.3 L - Diagnostic Test Radiology reviewed: Image reviewed, Reports reviewed Discharge - Discharge Clinical Impression: Abrasion of left elbow, initial encounter Facial abrasion Qualifiers: Encounter type: initial encounter Qualified Code(s): S00.81XA - Abrasion of other part of head, initial encounter Fall Qualifiers: Encounter type: initial encounter Qualified Code(s): W19.XXXA - Unspecified fall, initial encounter Condition: Stable Disposition: HOME, SELF-CARE Instructions: Abrasions ([facility]), Abrasions of the Face ([facility]) Referrals: GREY MCMULLEN MD [Primary Care Provider] - Follow up as needed
--- NOTE | 2019-12-09 12:00 | RADIOLOGY REPORT (SQ) ---
EXAM DESCRIPTION: ELBOW LEFT AP/LATERAL COMPLETED DATE/TIME: 12/09/2019 11:43 am REASON FOR STUDY: fall/pain COMPARISON: None. NUMBER OF VIEWS: Two views. TECHNIQUE: AP and lateral radiographic images acquired of the left elbow. LIMITATIONS: None. FINDINGS: MINERALIZATION: Normal. BONES: No acute fracture or dislocation. No worrisome bone lesions. JOINT: No effusion. SOFT TISSUES: No soft tissue swelling. No foreign body. OTHER: No other significant finding. IMPRESSION: NEGATIVE STUDY OF THE LEFT ELBOW. NO RADIOGRAPHIC EVIDENCE OF ACUTE INJURY. TECHNICAL DOCUMENTATION: JOB ID: [id number] [employer]- All Rights Reserved Reading location - IP/workstation name: [email or web address] [id number]
[2019-12-09 12:19] VITALS: BP 104/59
--- NOTE | 2019-12-09 18:36 | EKG REPORT ---
SEVERITY:- ABNORMAL ECG - AFIB/FLUTTER AND VENTRICULAR-PACED RHYTHM : Confirmed by: Nicki Chavez MD 09-Dec-2019 18:35:58
== END 2019-12-09 12:19 | disposition home or self-care (01) ==
LOC: ER 08:20
DX: S50.312A Abrasion of left elbow, initial encounter (principal); S00.81XA Abrasion of other part of head, initial encounter; S09.93XA Unspecified injury of face, initial encounter; M25.522 Pain in left elbow; M79.602 Pain in left arm; R51 Headache; W19.XXXA Unspecified fall, initial encounter; Z79.01 Long term (current) use of anticoagulants; I25.10 Atherosclerotic heart disease of native coronary artery without angina pectoris; I10 Essential (primary) hypertension; J44.9 Chronic obstructive pulmonary disease, unspecified; E11.9 Type 2 diabetes mellitus without complications
CPT/HCPCS: 36415; 70450; 72125; 80053; 85025; 85610; 93005; 93010; 99284

== ENCOUNTER → 2019-12-10 | Outpatient (CLI) | payer MEDICARE, BC ==
[2019-12-10 10:31] LABS: ABSOLUTE EOSINOPHILS # (AUTO) 0.4 10^3/uL (0.0-0.6); ABSOLUTE LYMPHOCYTES (AUTO) 0.7 10^3/uL (0.5-4.7); ABSOLUTE MONOCYTES (AUTO) 0.5 10^3/uL (0.1-1.4); ABSOLUTE NEUT (AUTO) 4.2 10^3/uL (1.7-8.2); BASOPHILS % (AUTO) 0.3 % (0-2); EOSINOPHILS % (AUTO) 7.7 % (0-6); HEMATOCRIT 33.6 % (37.9-51.0); HEMOGLOBIN 11.1 g/dL (13.5-17.0); LYMPHOCYTES % (AUTO) 12.1 % (13-45); MEAN CORPUSCULAR HEMOGLOBIN 31.3 pg (27.0-33.4); MEAN CORPUSCULAR HGB CONC 33.1 g/dL (32.0-36.0); MEAN CORPUSCULAR VOLUME 95 fl (80-97); MONOCYTES % (AUTO) 7.8 % (3-13); PLATELET COUNT 159 10^3/uL (150-450); RED BLOOD COUNT 3.55 10^6/uL (4.35-5.55); RED CELL DISTRIBUTION WIDTH 17.2 % (11.5-14.0); SEGMENTED NEUTROPHILS % (AUTO) 72.1 % (42-78); TOTAL CELLS COUNTED % (AUTO) 100 %; WHITE BLOOD COUNT 5.8 10^3/uL (4.0-10.5)
[2019-12-10 10:54] LABS: ALBUMIN 3.5 g/dL (3.5-5.0); ALKALINE PHOSPHATASE 64 U/L (38-126); ANION GAP 8 (5-19); ASPARTATE AMINO TRANSFERASE 24 U/L (17-59); BILIRUBIN,TOTAL 0.7 mg/dL (0.2-1.3); BLOOD UREA NITROGEN 43 mg/dL (7-20); CALCIUM 9.6 mg/dL (8.4-10.2); CARBON DIOXIDE 31 mmol/L (22-30); CHLORIDE 104 mmol/L (98-107); CHOLESTEROL 116.95 mg/dL (0-200); GLUCOSE 108 mg/dL (75-110); POTASSIUM 4.3 mmol/L (3.6-5.0); TOTAL PROTEIN 6.3 g/dL (6.3-8.2); TRIGLYCERIDES 81 mg/dL (<150)
[2019-12-10 11:06] LABS: DIRECT LDL 72 mg/dL (<100)
== END ==
LOC: OD 09:39
PROVIDERS: ATTEND Internal Medicine
DX: I11.0 Hypertensive heart disease with heart failure (principal); I50.9 Heart failure, unspecified; R06.00 Dyspnea, unspecified; E78.00 Pure hypercholesterolemia, unspecified; E11.9 Type 2 diabetes mellitus without complications; R53.83 Other fatigue; N40.1 Benign prostatic hyperplasia with lower urinary tract symptoms; N13.8 Other obstructive and reflux uropathy; Z79.899 Other long term (current) drug therapy; J44.9 Chronic obstructive pulmonary disease, unspecified
CPT/HCPCS: 36415; 80053; 80061; 85025

== ENCOUNTER 2020-02-02 00:56 | Observation (INO) | payer MEDICARE, BC ==
[2020-02-02 01:35] LABS: ABSOLUTE EOSINOPHILS # (AUTO) 1.1 10^3/uL (0.0-0.6); ABSOLUTE LYMPHOCYTES (AUTO) 0.8 10^3/uL (0.5-4.7); ABSOLUTE MONOCYTES (AUTO) 0.4 10^3/uL (0.1-1.4); BASOPHILS % (AUTO) 0.3 % (0-2); EOSINOPHILS % (AUTO) 20.2 % (0-6); HEMATOCRIT 35.3 % (37.9-51.0); HEMOGLOBIN 11.7 g/dL (13.5-17.0); LYMPHOCYTES % (AUTO) 15.6 % (13-45); MEAN CORPUSCULAR HEMOGLOBIN 31.3 pg (27.0-33.4); MEAN CORPUSCULAR HGB CONC 33.2 g/dL (32.0-36.0); MEAN CORPUSCULAR VOLUME 94 fl (80-97); MONOCYTES % (AUTO) 7.6 % (3-13); PLATELET COUNT 164 10^3/uL (150-450); RED BLOOD COUNT 3.74 10^6/uL (4.35-5.55); RED CELL DISTRIBUTION WIDTH 17.2 % (11.5-14.0); SEGMENTED NEUTROPHILS % (AUTO) 56.3 % (42-78); TOTAL CELLS COUNTED % (AUTO) 100 %; WHITE BLOOD COUNT 5.2 10^3/uL (4.0-10.5)
--- NOTE | 2020-02-02 01:37 | ER Document Report ---
ED Cardiac - General Chief Complaint: Chest Pain Stated Complaint: CHEST PAIN Time Seen by Provider: 02/02/20 01:21 Notes: Patient is an 84-year-old male that comes emergency department for chief complaint of left substernal chest pain that started after he went to bed tonight within an hour prior to arrival. He states he started hurting, it felt like it went through to his back, he states he took an nitroglycerin with no resolve, he states he found his regular nitroglycerin, this helped, he states he took a third 1 just before EMS got there and this resolved his symptoms. He denies any current chest pain. He denies nausea, cough, fever, abdominal pain, or any current complaints. He denies ever having an ME or stents but does have a history of CHF, AICD placement, A. fib on Coumadin, COPD, type 2 diabetes, and chronic back pain on oxycodone and morphine. He follows with cardiology and [facility]. His primary is Dr. Lamb. He denies smoking, alcohol, recreational drugs, he lives at home with his . He was given 325 mg of aspirin by EMS. He states he had a negative stress test last year but he is unsure when this was exactly. TRAVEL OUTSIDE OF THE [place] IN LAST 30 DAYS: No - Related Data Allergies/Adverse Reactions: No Known Allergies Allergy (Verified 10/03/18 07:48) Past Medical History - General Information source: Patient - Social History Smoking Status: Former Smoker Frequency of alcohol use: None Drug Abuse: None Lives with: Family Family History: Reviewed & Not Pertinent Patient has suicidal ideation: No Patient has homicidal ideation: No - Past Medical History Cardiac Medical History: Reports: Hx Atrial Fibrillation, Hx Coronary Artery Disease, Hx Hypercholesterolemia, Hx Hypertension Denies: Hx Congestive Heart Failure, Hx Heart Attack, Hx Heart Murmur Pulmonary Medical History: Reports: Hx Asthma, Hx COPD, Hx Pneumonia Denies: Hx Bronchitis, Hx Tuberculosis Neurological Medical History: Denies: Hx Cerebrovascular Accident, Hx Seizures Endocrine Medical History: Reports: Hx Diabetes Mellitus Type 2 Renal/ Medical History: Denies: Hx Peritoneal Dialysis GI Medical History: Musculoskeletal Medical History: Reports Hx Arthritis Infectious Medical History: Past Surgical History: Reports: Hx Appendectomy, Hx Cholecystectomy, Hx Pacemaker, Hx Tonsillectomy - Immunizations Hx Diphtheria, Pertussis, Tetanus Vaccination: Yes Hx Pneumococcal Vaccination: 02/02/06 Review of Systems - Review of Systems Constitutional: No symptoms reported EENT: No symptoms reported Cardiovascular: See HPI Respiratory: No symptoms reported Gastrointestinal: No symptoms reported Genitourinary: No symptoms reported Male Genitourinary: No symptoms reported Musculoskeletal: No symptoms reported Skin: No symptoms reported Hematologic/Lymphatic: No symptoms reported Neurological/Psychological: No symptoms reported Physical Exam - Vital signs Vitals: Pulse Ox 96 02/02/20 01:07 - Notes Notes: GENERAL: Alert, interacts well. No acute distress. HEAD: Normocephalic, atraumatic. EYES: Pupils equal, round, and reactive to light. Extraocular movements intact. ENT: Oral mucosa moist, tongue midline. Oropharynx unremarkable. Airway patent. Nares patent, sinuses nontender. NECK: Full range of motion. Supple. Trachea midline. LUNGS: Slightly decreased bilateral breath sounds but otherwise clear to auscultation bilaterally, no wheezes, rales, or rhonchi. No respiratory distress. HEART: Regular rate and rhythm. Murmur present, 2/6, heard throughout ABDOMEN: Soft, non-tender. Non-distended. EXTREMITIES: Moves all 4 extremities spontaneously. No edema, normal radial and dorsalis pedis pulses bilaterally. No cyanosis. BACK: no cervical, thoracic, lumbar midline tenderness. No saddle anesthesia, normal distal neurovascular exam. Moves all extremities in full range of motion. NEUROLOGICAL: Alert and oriented x3. Normal speech. Cranial nerves II through XII grossly intact. PSYCH: Normal affect, normal mood. SKIN: Warm, dry, normal turgor. No rashes or lesions noted. Course - Re-evaluation Re-evalutation: Patient asymptomatic after 3 nitros and aspirin. No complaints on my exam. Pain was in the left chest at the sternal border per patient indication. Vital signs unremarkable. Chest x-ray unremarkable. EKG showing ventricular paced rhythm. CBC nonspecific, chemistry unremarkable with mild hyperglycemia but no acidosis. INR is in expected range. Initial troponin 0.02, this is essentially unchanged from prior. On reevaluation patient has no symptoms again. Based on patient's history, age, medical comorbidities his heart score is 5. Discussed with patient, will discuss with hospitalist for admission for chest pain rule out. Discussed with Dr. Higgins. Discussed with Dr. Bello, hospitalist, patient accepted to telemetry observation. - Vital Signs Vital signs: Temp Pulse Resp BP Pulse Ox 98.6 F 65 15 143/72 H 99 02/02/20 01:09 02/02/20 01:09 02/02/20 03:01 02/02/20 03:01 02/02/20 03:01 - Laboratory Result Diagrams: 02/02/20 00:40 02/02/20 00:40 Laboratory results interpreted by me: 02/02/20 02/02/20 02/02/20 00:40 00:40 00:40 RBC 3.74 L Hgb 11.7 L Hct 35.3 L RDW 17.2 H Eos % (Auto) 20.2 H Absolute Eos (auto) 1.1 H PT 29.9 H Carbon Dioxide 32 H BUN 49 H Est GFR (MDRD) Non-Af 55 L Glucose 203 H Hemoglobin A1c % Albumin 3.4 L 02/02/20 00:40 RBC Hgb Hct RDW Eos % (Auto) Absolute Eos (auto) PT Carbon Dioxide BUN Est GFR (MDRD) Non-Af Glucose Hemoglobin A1c % 7.3 H Albumin Discharge - Discharge Clinical Impression: Chest pain Qualifiers: Chest pain type: unspecified Qualified Code(s): R07.9 - Chest pain, unspecified Condition: Stable Disposition: ADMITTED OBSERVATION Admitting Provider: Ace (Hospitalist) Unit Admitted: Telemetry
[2020-02-02 01:50] LABS: ALBUMIN 3.4 g/dL (3.5-5.0); ALKALINE PHOSPHATASE 72 U/L (38-126); ANION GAP 8 (5-19); ASPARTATE AMINO TRANSFERASE 30 U/L (17-59); BILIRUBIN,TOTAL 0.2 mg/dL (0.2-1.3); BLOOD UREA NITROGEN 49 mg/dL (7-20); CALCIUM 9.8 mg/dL (8.4-10.2); CARBON DIOXIDE 32 mmol/L (22-30); CHLORIDE 99 mmol/L (98-107); GLUCOSE 203 mg/dL (75-110); POTASSIUM 4.4 mmol/L (3.6-5.0); TOTAL PROTEIN 6.3 g/dL (6.3-8.2)
[2020-02-02 02:00] LABS: INTERNATIONAL RATION (INR) 2.78; PROTHROMBIN TIME 29.9 SEC (11.4-15.4)
--- NOTE | 2020-02-02 02:03 | RADIOLOGY REPORT (SQ) ---
EXAM DESCRIPTION: [facility]: XR CHEST 1 VIEW CLINICAL HISTORY: 84 years Male; chest pain; COMPARISON: 08/19/2018 FINDINGS: Lungs: Lungs are clear, with no focal infiltrate, pneumothorax, or pleural effusion. Mediastinum: Mild aortic calcification is again noted. Mediastinum is unchanged. Pacemaker remains in place with intact lead. Bones: Left shoulder arthroplasty is again noted. IMPRESSION: 1. No acute pulmonary findings. 2. Pacemaker
[2020-02-02] MEDS ORDERED: NITROGLYCERIN 0.4 MG/TAB 25 TAB/BOTTLE SL PRN (02:34)
[2020-02-02] MEDS ORDERED: ACETAMINOPHEN 325 MG TABLET PO PRN (02:34)
[2020-02-02] MEDS ORDERED: LACTULOSE SYRUP 20 GM/30 ML UDCUP PO ONE (02:34)
--- NOTE | 2020-02-02 04:08 | PDOC H&P ---
History of Present Illness Admission Date/PCP: 02/02/20 02:41 GREY MCMULLEN MD Patient complains of: Chest pain History of Present Illness: AMINATA BILL SR is a 84 year old male with a past medical history of severe aortic stenosis, COPD with bronchitis, congestive heart failure unknown ejection fraction, atrial fibrillation status post permanent pacemaker, opiate dependent chronic pain, chronic constipation. Patient presents to the emergency department 2 hours after the onset of left-sided chest pain which was nonradiating 4-5 intensity dull without palpitations nausea or vomiting. He found relief after his second dose of nitroglycerin. In the emergency department he is found to have indeterminate troponin and referred to the hospitalist for admission. Patient recalls cardiac stress test and cardiac catheterization referred by his model dresser Dr. Saucedo, But is unable the diagnosis or date. He is pain-free and referred to the hospitalist for admission Past Medical History Cardiac Medical History: Reports: Atrial Fibrillation, Coronary Artery Disease, Hyperlipidema, Hypertension Denies: Congestive Heart Failure, Myocardial Infarction, Heart Murmur Pulmonary Medical History: Reports: Asthma, Chronic Obstructive Pulmonary Disease (COPD), Pneumonia Denies: Bronchitis, Tuberculosis Neurological Medical History: Denies: Seizures Endocrine Medical History: Reports: Diabetes Mellitus Type 2 GI Medical History: Musculoskeltal Medical History: Reports: Arthritis Hematology: Denies: Anemia Past Surgical History Past Surgical History: Reports: Appendectomy, Cholecystectomy, Pacemaker, Tonsillectomy Social History Lives with: Family Smoking Status: Former Smoker Frequency of Alcohol Use: None Hx Recreational Drug Use: No Drugs: None Hx Prescription Drug Abuse: No - Advance Directive Resuscitation Status: Full Code Family History Family History: COPD Parental Family History Reviewed: Yes Children Family History Reviewed: Yes Sibling(s) Family History Reviewed.: Yes Medication/Allergy Home Medications: Albuterol Sulfate [Proair HFA Inhalation Aerosol 8.5 gm MDI] 1 puff IH Q6HP PRN 08/20/18 Amlodipine Besylate [Norvasc 5 mg Tablet] 5 mg PO DAILY 08/20/18 Finasteride [Proscar 5 mg Tablet] 5 mg PO DAILY 08/20/18 Fluticasone Propionate [Flonase Nasal [place] 50 Mcg/Couch 16 gm] 1 spray NASL DAILY 08/20/18 Fluticasone/Vilanterol [Breo Ellipta 200-25 Mcg INH] 1 puff IH DAILY 08/20/18 Gabapentin [Neurontin 300 mg Capsule] 300 mg PO Q12 PRN 08/20/18 Metoprolol Tartrate [Lopressor 25 mg Tablet] 25 mg PO Q12 08/20/18 Polyethylene Glycol 3350 [Miralax Powder 17 gm/Packet] 17 gm PO DAILY 08/20/18 Warfarin Sodium [Coumadin 5 mg Tablet] 5 mg PO DAILY 08/22/18 Furosemide [Lasix] 40 mg PO DAILY 09/29/18 Glimepiride [Amaryl] 2 mg PO DAILY 09/29/18 Morphine Sulfate [Morphine Ir 30 mg Tablet] 30 mg PO BID 10/03/18 Oxycodone HCl 5 mg PO BID 10/03/18 Ondansetron [Zofran Odt 4 mg Tablet] 1 tab PO Q4H PRN #12 tab.rapdis 09/29/19 Allergies/Adverse Reactions: No Known Allergies Allergy (Verified 10/03/18 07:48) Review of Systems Constitutional: ABSENT: chills, fever(s), headache(s), weight gain, weight loss Eyes: ABSENT: visual disturbances Ears: ABSENT: hearing changes Cardiovascular: ABSENT: chest pain, dyspnea on exertion, edema, orthropnea, palpitations Respiratory: ABSENT: cough, hemoptysis Gastrointestinal: ABSENT: abdominal pain, constipation, diarrhea, hematemesis, hematochezia, nausea, vomiting Genitourinary: ABSENT: dysuria, hematuria Musculoskeletal: ABSENT: joint swelling Integumentary: ABSENT: rash, wounds Neurological: ABSENT: abnormal gait, abnormal speech, confusion, dizziness, focal weakness, syncope Psychiatric: ABSENT: anxiety, depression, homidical ideation, suicidal ideation Endocrine: ABSENT: cold intolerance, heat intolerance, polydipsia, polyuria Hematologic/Lymphatic: ABSENT: easy bleeding, easy bruising Physical Exam Vital Signs: Temp Pulse Resp BP Pulse Ox 97.8 F 65 16 145/66 H 97 02/02/20 03:46 02/02/20 03:46 02/02/20 03:46 02/02/20 03:46 02/02/20 03:46 Intake & Output 01/31/20 02/01/20 02/02/20 11:59 11:59 11:59 Weight 89.6 kg General appearance: PRESENT: no acute distress, well-developed, well-nourished Head exam: PRESENT: atraumatic, normocephalic Eye exam: PRESENT: conjunctiva pink, EOMI, PERRLA. ABSENT: scleral icterus Ear exam: PRESENT: normal external ear exam Mouth exam: PRESENT: moist, tongue midline Neck exam: ABSENT: carotid bruit, JVD, lymphadenopathy, thyromegaly Respiratory exam: PRESENT: clear to auscultation giuliano. ABSENT: rales, rhonchi, wheezes Cardiovascular exam: PRESENT: RRR, systolic murmur - 3/6 systolic ejection. ABSENT: diastolic murmur, gallop, rubs Pulses: PRESENT: normal dorsalis pedis pul Vascular exam: PRESENT: normal capillary refill GI/Abdominal exam: PRESENT: normal bowel sounds, soft. ABSENT: distended, guarding, mass, organolmegaly, rebound, tenderness Rectal exam: PRESENT: deferred Extremities exam: PRESENT: full ROM. ABSENT: calf tenderness, clubbing, pedal edema Neurological exam: PRESENT: alert, awake, oriented to person, oriented to place, oriented to time, oriented to situation, CN II-XII grossly intact. ABSENT: motor sensory deficit Psychiatric exam: PRESENT: appropriate affect, normal mood. ABSENT: homicidal ideation, suicidal ideation Skin exam: PRESENT: dry, intact, warm. ABSENT: cyanosis, rash Results Laboratory Results: 02/02/20 00:40 02/02/20 00:40 02/02/20 02/02/20 00:40 00:40 WBC 5.2 RBC 3.74 L Hgb 11.7 L Hct 35.3 L MCV 94 MCH 31.3 MCHC 33.2 RDW 17.2 H Plt Count 164 Seg Neutrophils % 56.3 Sodium 139.1 Potassium 4.4 Chloride 99 Carbon Dioxide 32 H Anion Gap 8 BUN 49 H Creatinine 1.24 Est GFR ( Amer) > 60 Glucose 203 H Calcium 9.8 Total Bilirubin 0.2 AST 30 Alkaline Phosphatase 72 Total Protein 6.3 Albumin 3.4 L 02/02/20 00:40 Troponin I 0.029 Impressions: Chest X-Ray 02/02/20 00:57 IMPRESSION: 1. No acute pulmonary findings. 2. Pacemaker Assessment and Plan - Diagnosis (1) Chest pain Qualifiers: Chest pain type: unspecified Qualified Code(s): R07.9 - Chest pain, unspecified Is this a current diagnosis for this admission?: Yes Plan: Chest pain care set deployed, follow-up serial troponin, consider consult patient's model dresser for outpatient stress. (2) Chronic atrial fibrillation Is this a current diagnosis for this admission?: Yes Plan: Paced rhythm on Coumadin. (3) Chronic constipation Is this a current diagnosis for this admission?: Yes Plan: Acutely present, lactulose trial. (4) Diabetes mellitus Is this a current diagnosis for this admission?: Yes Plan: Outpatient regiment with Humalog sliding scale. - Time Time Spent with patient: 25-34 minutes - Inpatient Certification Medical Necessity: Need Close Monitoring Due to Risk of Patient Decompensation
--- NOTE | 2020-02-02 09:25 | EKG REPORT ---
SEVERITY:- ABNORMAL ECG - VENTRICULAR-PACED RHYTHM : Confirmed by: Scot Steiner 02-Feb-2020 09:24:02
[2020-02-02] MEDS: FAMOTIDINE 20 MG TABLET PO SCH ×2 (10:05→17:25)
[2020-02-02] MEDS: ASPIRIN 81 MG TABLET, ENT COATED PO SCH (10:07)
--- NOTE | 2020-02-02 10:57 | PDOC CONSULTATION ---
Consultation Consult Date: 02/02/20 Attending physician:: SHEFALI JAMES Provider Consulted: TUCKER MCDONALD Consult reason:: Chest pain History of Present Illness Admission Date/PCP: 02/02/20 02:41 GREY MCMULLEN MD Patient complains of: Chest pain History of Present Illness: AMINATA BILL SR is a 84 year old male that comes emergency department for chief complaint of left substernal chest pain that started after he went to bed tonight within an hour prior to arrival. He states he started hurting, it felt like it went through to his back, he states he took an nitroglycerin with no resolve, he states he found his regular nitroglycerin, this helped, he states he took a third 1 just before EMS got there and this resolved his symptoms. He denies any current chest pain. He denies nausea, cough, fever, abdominal pain, or any current complaints. He denies ever having an [place] or stents but does have a history of CHF, AICD placement, A. fib on Coumadin, COPD, type 2 diabetes, and chronic back pain on oxycodone and morphine. He follows with cardiology and [place]. His primary is Dr. Lamb. He denies smoking, alcohol, recreational drugs, he lives at home with his . He was given 325 mg of aspirin by EMS. He states he had a negative stress test last year but he is unsure when this was exactly. This history obtained by the ER physician was reviewed. Patient claims that he had a heart catheterization sometimes last year which showed patent blood vessels but there was some concern about severe aortic stenosis. He claims that he was referred to [facility] for a percutaneous aortic valve replacement but the surgeon there did not feel he needed it at that time and this was not performed. He claims he has been relatively symptom-free since then except what made him come to the emergency room with prolonged chest pain. Past Medical History Cardiac Medical History: Reports: Atrial Fibrillation, Coronary Artery Disease, Hyperlipidema, Hypertension Denies: Congestive Heart Failure, Myocardial Infarction, Heart Murmur Pulmonary Medical History: Reports: Asthma, Chronic Obstructive Pulmonary Disease (COPD), Pneumonia Denies: Bronchitis, Tuberculosis Neurological Medical History: Denies: Seizures Endocrine Medical History: Reports: Diabetes Mellitus Type 2 GI Medical History: Musculoskeltal Medical History: Reports: Arthritis Hematology: Denies: Anemia Past Surgical History Past Surgical History: Reports: Appendectomy, Cholecystectomy, Pacemaker, Tonsillectomy Social History Information Source: Patient Lives with: Family Smoking Status: Former Smoker Frequency of Alcohol Use: None Hx Recreational Drug Use: No Drugs: None Hx Prescription Drug Abuse: No - Advance Directive Resuscitation Status: Full Code Family History Family History: COPD Parental Family History Reviewed: Yes Children Family History Reviewed: Yes Sibling(s) Family History Reviewed.: Yes Medication/Allergy Home Medications: Albuterol Sulfate [Proair HFA Inhalation Aerosol 8.5 gm MDI] 1 puff IH Q6HP PRN 08/20/18 Amlodipine Besylate [Norvasc 5 mg Tablet] 5 mg PO DAILY 08/20/18 Finasteride [Proscar 5 mg Tablet] 5 mg PO DAILY 08/20/18 Fluticasone Propionate [Flonase Nasal [place] 50 Mcg/[place] 16 gm] 1 spray NASL DAILY 08/20/18 Fluticasone/Vilanterol [Breo Ellipta 200-25 Mcg INH] 1 puff IH DAILY 08/20/18 Gabapentin [Neurontin 300 mg Capsule] 300 mg PO BID 08/20/18 Metoprolol Tartrate [Lopressor 25 mg Tablet] 25 mg PO Q12 08/20/18 Warfarin Sodium [Coumadin 5 mg Tablet] 5 mg PO QPM 08/22/18 Furosemide [Lasix] 40 mg PO BID 09/29/18 Glimepiride [Amaryl] 2 mg PO DAILY 09/29/18 Morphine Sulfate [Morphine Ir 30 mg Tablet] 30 mg PO TID 10/03/18 Oxycodone HCl 5 mg PO Q6 10/03/18 Allopurinol [Zyloprim 300 mg Tablet] 300 mg PO DAILY 02/02/20 Cetirizine HCl [Zyrtec 10 mg Tablet] 10 mg PO DAILY 02/02/20 Cholecalciferol (Vitamin D3) [Vitamin D3 1000 Unit Tablet] 1,000 unit PO TID 02/02/20 Cyanocobalamin (Vitamin B-12) [B-12] 1,000 mcg PO DAILY 02/02/20 Isosorbide Dinitrate [Isordil Titradose 10 Mg Tablet] 10 mg PO BID 02/02/20 Linaclotide [Linzess 145 Mcg Capsule] 145 mcg PO DAILY 02/02/20 Nitroglycerin [Nitrostat 0.4 mg (1/150 Gr) Tabs 25/Bottle] 1 tab SL Q5MP PRN 02/02/20 Tamsulosin HCl [Flomax] 0.4 mg PO DAILY 02/02/20 Allergies/Adverse Reactions: No Known Allergies Allergy (Verified 10/03/18 07:48) Review of Systems Constitutional: ABSENT: chills, fever(s), headache(s), weight gain, weight loss Eyes: ABSENT: visual disturbances Ears: ABSENT: hearing changes Cardiovascular: PRESENT: chest pain, dyspnea on exertion. ABSENT: edema, orthropnea, palpitations Respiratory: ABSENT: cough, hemoptysis Gastrointestinal: ABSENT: abdominal pain, constipation, diarrhea, hematemesis, hematochezia, nausea, vomiting Genitourinary: ABSENT: dysuria, hematuria Musculoskeletal: ABSENT: joint swelling Integumentary: ABSENT: rash, wounds Neurological: ABSENT: abnormal gait, abnormal speech, confusion, dizziness, focal weakness, syncope Psychiatric: ABSENT: anxiety, depression, homidical ideation, suicidal ideation Endocrine: ABSENT: cold intolerance, heat intolerance, polydipsia, polyuria Hematologic/Lymphatic: ABSENT: easy bleeding, easy bruising Physical Exam Vital Signs: Temp Pulse Resp BP Pulse Ox 97.6 F 69 18 135/74 H 97 02/02/20 07:35 02/02/20 07:35 02/02/20 07:35 02/02/20 07:35 02/02/20 07:35 Intake & Output 02/01/20 02/02/20 02/03/20 06:59 06:59 06:59 Output Total 200 Balance -200 Weight 89.6 kg General appearance: PRESENT: no acute distress, well-developed, well-nourished Head exam: PRESENT: atraumatic, normocephalic Eye exam: PRESENT: conjunctiva pink, EOMI, PERRLA. ABSENT: scleral icterus Ear exam: PRESENT: normal external ear exam Mouth exam: PRESENT: moist, tongue midline Neck exam: ABSENT: carotid bruit, JVD, lymphadenopathy, thyromegaly Respiratory exam: PRESENT: clear to auscultation giuliano. ABSENT: rales, rhonchi, wheezes Cardiovascular exam: PRESENT: RRR, +S1, +S2, systolic murmur - 2/6 to 3/6 ejection systolic murmur. ABSENT: diastolic murmur, rubs Pulses: PRESENT: normal dorsalis pedis pul Vascular exam: PRESENT: normal capillary refill GI/Abdominal exam: PRESENT: normal bowel sounds, soft. ABSENT: distended, guarding, mass, organolmegaly, rebound, tenderness Rectal exam: PRESENT: deferred Extremities exam: PRESENT: full ROM. ABSENT: calf tenderness, clubbing, pedal edema Neurological exam: PRESENT: alert, awake, oriented to person, oriented to place, oriented to time, oriented to situation, CN II-XII grossly intact. ABSENT: motor sensory deficit Psychiatric exam: PRESENT: appropriate affect, normal mood. ABSENT: homicidal ideation, suicidal ideation Skin exam: PRESENT: dry, intact, warm. ABSENT: cyanosis, rash Results Laboratory Results: 02/02/20 00:40 02/02/20 00:40 02/02/20 02/02/20 00:40 00:40 WBC 5.2 RBC 3.74 L Hgb 11.7 L Hct 35.3 L MCV 94 MCH 31.3 MCHC 33.2 RDW 17.2 H Plt Count 164 Seg Neutrophils % 56.3 Sodium 139.1 Potassium 4.4 Chloride 99 Carbon Dioxide 32 H Anion Gap 8 BUN 49 H Creatinine 1.24 Est GFR ( Amer) > 60 Glucose 203 H Calcium 9.8 Total Bilirubin 0.2 AST 30 Alkaline Phosphatase 72 Total Protein 6.3 Albumin 3.4 L 02/02/20 02/02/20 00:40 07:05 Troponin I 0.029 0.032 EKG Comments: Atrial fibrillation with paced ventricular beats Impressions: Chest X-Ray 02/02/20 00:57 IMPRESSION: 1. No acute pulmonary findings. 2. Pacemaker Assessment & Plan - Diagnosis (1) Chest pain Qualifiers: Chest pain type: unspecified Qualified Code(s): R07.9 - Chest pain, unspecified Is this a current diagnosis for this admission?: Yes (2) Chronic atrial fibrillation Is this a current diagnosis for this admission?: Yes (3) Diabetes mellitus Is this a current diagnosis for this admission?: Yes (5) Cardiac pacemaker in situ Is this a current diagnosis for this admission?: Yes - Notes Notes: Chest pain: So far cardiac enzymes are minimally abnormal and possibly WNL for patient's advanced age. Currently chest pain-free. Recommend empiric therapy with proton pump inhibitor, optimize management for underlying presumed CAD. Please note that patient claims that he had patent coronaries by heart catheterization last year. We will try to obtain those records. At this point will recommend medical management. Will add Ranexa to the regimen. Recommend high potency statin therapy. Chronic atrial fibrillation: Currently on warfarin therapy. INR within range. Diabetes: Being well managed by the hospitalist. Hypertension: Currently well controlled. Pacemaker in situ: Seems to be functioning well on telemetry strips reviewed. Should patient remain chest pain-free over the next 24 hours, could consider discharging patient. I did order a 2D echo to evaluate aortic stenosis, LVEF etc. 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 Patient should follow-up with him as an outpatient. Soon RIZWAN after discharge. Soon after discharge. - Time Time Spent: 30 to 50 Minutes
[2020-02-02] MEDS: METOPROLOL SUCCINATE 25 MG TAB.SR.24H PO SCH ×2 (12:06→21:07)
--- NOTE | 2020-02-02 13:12 | XCELERA REPORT ---
[address] [address] Transthoracic Echocardiogram Report Name: FLY AMINATA DORSEY SR Age: 84 yrs Gender: Male : 1935 Patient Status: Inpatient Patient Location: [address] [place] [address] Study Date: 02/02/2020 10:49 AM Height: 70 in Weight: 197 lb BSA: 2.1 m2 Procedure: A complete two-dimensional transthoracic echocardiogram was performed (2D, M-mode, spectral and color flow Doppler). The study was technically adequate with some images being suboptimal in quality. Reason For Study: , CHF Ordering Physician: SCOT MCDONALD Performed By: Angel Mcknight Interpretation Summary The left ventricular ejection fraction is normal. There is moderate concentric left ventricular hypertrophy. The left ventricle is grossly normal size. Doppler measurements suggest pseudonormalized left ventricular relaxation, which is associated with grade II/IV or mild to moderate diastolic dysfunction Wall motion cannot be accurately commented on, but no definite regional wall motion abnormalities noted. Borderline right ventricular enlargement. The right ventricular systolic function is normal. The left atrium is severely dilated. The right atrium is normal in size There is a trace to mild amount of mitral regurgitation There is no mitral valve stenosis. There is moderate aortic stenosis There is a peak gradient of 40, mean 25 mm of Hg. There is a mild amount of aortic regurgitation There is a mild amount of tricuspid regurgitation Right ventricular systolic pressure is estimated to be elevated at 30-40mmHg. There is mild pulmonary hypertension by echo The aortic root is not well visualized but is probably normal size. The inferior vena cava appeared normal and decreased > 50% with respiration (RAP 5-10 mmHg) There is no pericardial effusion. MMode/2D Measurements & Calculations RVDd: 3.9 cm LVIDd: 4.4 cm FS: 33.5 % Ao root diam: 3.5 cm IVSd: 1.5 cm LVIDs: 2.9 cm EDV(Teich): 87.5 ml Ao root area: 9.7 cm2 LVPWd: 1.7 cm ESV(Teich): 32.9 ml LA dimension: 5.1 cm EF(Teich): 62.4 % LVOT diam: 2.2 cm LVOT area: 3.8 cm2 Doppler Measurements & Calculations MV E max tito: MV P1/2t max tito: Ao V2 max: LV V1 max P.6 cm/sec 158.8 cm/sec 313.7 cm/sec 2.7 mmHg MV A max tito: MV P1/2t: 81.1 msec Ao max PG: LV V1 mean P.8 cm/sec MVA(P1/2t): 2.7 cm2 39.4 mmHg 1.6 mmHg MV E/A: 3.0 MV dec slope: Ao V2 mean: LV V1 max: 226.0 cm/sec 82.3 cm/sec 573.1 cm/sec2 Ao mean PG: LV V1 mean: MV dec time: 0.19 sec 22.0 mmHg 59.1 cm/sec Ao V2 VTI: 72.9 cm LV V1 VTI: 18.6 cm KOSTAS(I,D): 0.96 cm2 KOSTAS(V,D): 0.99 cm2 SV(LVOT): 69.8 ml PA V2 max: PI end-d tito: TR max tito: 88.8 cm/sec 95.0 cm/sec 342.1 cm/sec PA max P.2 mmHg TR max P.8 mmHg MV P1/2t-pr_phl: 81.1 msec Left Ventricle The left ventricle is grossly normal size. There is moderate concentric left ventricular hypertrophy. The left ventricular ejection fraction is normal. Doppler measurements suggest pseudonormalized left ventricular relaxation, which is associated with grade II/IV or mild to moderate diastolic dysfunction. Wall motion cannot be accurately commented on, but no definite regional wall motion abnormalities noted. Right Ventricle Borderline right ventricular enlargement. There is normal right ventricular wall thickness. The right ventricular systolic function is normal. Atria The right atrium is normal in size. The left atrium is severely dilated. Interarterial septum not well visualized and not well dopplered. Cannot comment on ASD/PFO presence. Mitral Valve The mitral valve leaflets are sclerotic and show some degree of functional abnormality. There is no mitral valve stenosis. There is a trace to mild amount of mitral regurgitation. Aortic Valve The aortic valve is moderately calcified. There is moderate aortic stenosis. There is a peak gradient of 40, mean 25 mm of Hg. There is a mild amount of aortic regurgitation. Tricuspid Valve The tricuspid valve is not well visualized, but is grossly normal. There is no tricuspid stenosis. There is a mild amount of tricuspid regurgitation. Right ventricular systolic pressure is estimated to be elevated at 30-40mmHg. There is mild pulmonary hypertension by echo. Pulmonic Valve The pulmonic valve is not well visualized. Great Vessels The aortic root is not well visualized but is probably normal size. The inferior vena cava appeared normal and decreased > 50% with respiration (RAP 5-10 mmHg). Effusions There is no pericardial effusion. : SCOT MCDONALD Shyamal
--- NOTE | 2020-02-02 16:22 | EKG REPORT ---
SEVERITY:- ABNORMAL ECG - VENTRICULAR-PACED RHYTHM : Confirmed by: Scot Steiner 02-Feb-2020 16:22:08
[2020-02-02] MEDS ORDERED: ATORVASTATIN CALCIUM 40 MG TABLET PO SCH (22:00)
[2020-02-03] MEDS ORDERED: OXYCODONE HCL IR 5 MG TABLET PO PRN (01:56)
[2020-02-03] MEDS ORDERED: MORPHINE SULFATE IR 30 MG TABLET PO SCH (06:00)
--- NOTE | 2020-02-03 08:26 | EKG REPORT ---
SEVERITY:- ABNORMAL ECG - VENTRICULAR-PACED COMPLEXES NONSPECIFIC INTRAVENTRICULAR CONDUCTION DELAY NONSPECIFIC ST DEPRESSION : Confirmed by: Scot Steiner 03-Feb-2020 08:26:10
[2020-02-03] MEDS: ASPIRIN 81 MG TABLET, ENT COATED PO SCH (09:57)
[2020-02-03] MEDS: FAMOTIDINE 20 MG TABLET PO SCH (09:57)
[2020-02-03] MEDS: METOPROLOL SUCCINATE 25 MG TAB.SR.24H PO SCH (09:57)
[2020-02-03 11:56] VITALS: BP 145/66
--- NOTE | 2020-02-03 17:25 | PDOC DISCHARGE SUMMARY ---
Impression - Admit/DC Date/PCP Admission Date/Primary Care Provider: 02/02/20 02:41 GREY MCMULLEN MD Discharge Date: 02/03/20 - Discharge Diagnosis (1) Cardiac pacemaker in situ Is this a current diagnosis for this admission?: Yes (2) Chest pain Is this a current diagnosis for this admission?: Yes (3) Chronic atrial fibrillation Is this a current diagnosis for this admission?: Yes - Additional Information Resuscitation Status: Full Code Discharge Diet: As Tolerated, Cardiac Discharge Activity: Activity As Tolerated, Balance Activity w/Rest Referrals: GREY MCMULLEN MD [Primary Care Provider] - 02/10/20 10:00 am Home Medications: Albuterol Sulfate [Proair HFA Inhalation Aerosol 8.5 gm MDI] 1 puff IH Q6HP PRN 08/20/18 Amlodipine Besylate [Norvasc 5 mg Tablet] 5 mg PO DAILY 08/20/18 Finasteride [Proscar 5 mg Tablet] 5 mg PO DAILY 08/20/18 Fluticasone Propionate [Flonase Nasal Sanders 50 Mcg/Sanders 16 gm] 1 spray NASL DAILY 08/20/18 Fluticasone/Vilanterol [Breo Ellipta 200-25 Mcg INH] 1 puff IH DAILY 08/20/18 Gabapentin [Neurontin 300 mg Capsule] 300 mg PO BID 08/20/18 Metoprolol Tartrate [Lopressor 25 mg Tablet] 25 mg PO Q12 08/20/18 Warfarin Sodium [Coumadin 5 mg Tablet] 5 mg PO QPM 08/22/18 Furosemide [Lasix] 40 mg PO BID 09/29/18 Glimepiride [Amaryl] 2 mg PO DAILY 09/29/18 Morphine Sulfate [Morphine Ir 30 mg Tablet] 30 mg PO TID 10/03/18 Oxycodone HCl 5 mg PO Q6 10/03/18 Allopurinol [Zyloprim 300 mg Tablet] 300 mg PO DAILY 02/02/20 Cetirizine HCl [Zyrtec 10 mg Tablet] 10 mg PO DAILY 02/02/20 Cholecalciferol (Vitamin D3) [Vitamin D3 1000 Unit Tablet] 1,000 unit PO TID 02/02/20 Cyanocobalamin (Vitamin B-12) [B-12] 1,000 mcg PO DAILY 02/02/20 Isosorbide Dinitrate [Isordil Titradose 10 mg Tablet] 10 mg PO BID 02/02/20 Linaclotide [Linzess 145 Mcg Capsule] 145 mcg PO DAILY 02/02/20 Nitroglycerin [Nitrostat 0.4 mg (1/150 Gr) Tabs 25/Bottle] 1 tab SL Q5MP PRN 02/02/20 Tamsulosin HCl [Flomax] 0.4 mg PO DAILY 02/02/20 History of Present Illiness History of Present Illness: AMINATA BILL SR is a 84 year old male This patient was admitted with chest pain and found to have an indeterminate t roponin. There was no associated nausea or vomiting. Patient does have a history of coronary artery disease, as well as severe aortic stenosis. Was admitted for further evaluation and management. Please see admitting history and physical as well as consultation report by cardiology for full details. Hospital Course Hospital Course: Patient was admitted to the telemetry floor where he was monitored. He had no significant arrhythmia. Serial cardiac enzymes done revealed his troponins to be flat with a downward trend. Patient had no episodes of chest pain while in hospital. He was seen by Dr. Steiner to help manage his chest pain. An echocardiogram was done which revealed normal left ventricular ejection fraction and moderate aortic stenosis among other findings. Since patient's presenting symptoms had resolved and he has remained hemodynamically stable and no further inpatient intervention is been planned it is felt that patient can be discharged home at this time in stable condition. He will follow-up with his manager appointment as outpatient Physical Exam Vital Signs: Temp Pulse Resp BP Pulse Ox 97.9 F 68 16 145/66 H 97 02/03/20 11:54 02/03/20 11:54 02/03/20 11:54 02/03/20 11:54 02/03/20 11:54 Intake & Output 02/02/20 02/03/20 02/04/20 06:59 06:59 06:59 Intake Total 240 Output Total 700 Balance -460 Weight 89.6 kg 85.5 kg General appearance: PRESENT: no acute distress, well-developed, well-nourished Head exam: PRESENT: atraumatic, normocephalic Eye exam: PRESENT: conjunctiva pink, EOMI, PERRLA. ABSENT: scleral icterus Mouth exam: PRESENT: tongue midline Neck exam: ABSENT: carotid bruit, JVD, lymphadenopathy, thyromegaly Respiratory exam: PRESENT: clear to auscultation giuliano. ABSENT: rales, rhonchi, wheezes Cardiovascular exam: PRESENT: irregular rhythm, +S1, +S2, systolic murmur. ABSENT: diastolic murmur, rubs Pulses: PRESENT: normal dorsalis pedis pul Vascular exam: PRESENT: normal capillary refill GI/Abdominal exam: PRESENT: normal bowel sounds, soft. ABSENT: distended, guarding, mass, organolmegaly, rebound, tenderness Rectal exam: PRESENT: deferred Extremities exam: PRESENT: full ROM. ABSENT: calf tenderness, clubbing, pedal edema Neurological exam: PRESENT: alert, awake, oriented to person, oriented to place, oriented to time, oriented to situation, CN II-XII grossly intact. ABSENT: motor sensory deficit Psychiatric exam: PRESENT: appropriate affect. ABSENT: homicidal ideation, suicidal ideation Skin exam: PRESENT: dry, intact, warm. ABSENT: cyanosis, rash Results Laboratory Results: WBC 5.2 10^3/uL (4.0-10.5) 02/02/20 00:40 RBC 3.74 10^6/uL (4.35-5.55) L 02/02/20 00:40 Hgb 11.7 g/dL (13.5-17.0) L 02/02/20 00:40 Hct 35.3 % (37.9-51.0) L 02/02/20 00:40 MCV 94 fl (80-97) 02/02/20 00:40 MCH 31.3 pg (27.0-33.4) 02/02/20 00:40 MCHC 33.2 g/dL (32.0-36.0) 02/02/20 00:40 RDW 17.2 % (11.5-14.0) H 02/02/20 00:40 Plt Count 164 10^3/uL (150-450) 02/02/20 00:40 Lymph % (Auto) 15.6 % (13-45) 02/02/20 00:40 [place] % (Auto) 7.6 % (3-13) 02/02/20 00:40 Eos % (Auto) 20.2 % (0-6) H 02/02/20 00:40 Baso % (Auto) 0.3 % (0-2) 02/02/20 00:40 Absolute Neuts (auto) 3.0 10^3/uL (1.7-8.2) 02/02/20 00:40 Absolute Lymphs (auto) 0.8 10^3/uL (0.5-4.7) 02/02/20 00:40 Absolute Monos (auto) 0.4 10^3/uL (0.1-1.4) 02/02/20 00:40 Absolute Eos (auto) 1.1 10^3/uL (0.0-0.6) H 02/02/20 00:40 Absolute Basos (auto) 0.0 10^3/uL (0.0-0.2) 02/02/20 00:40 Seg Neutrophils % 56.3 % (42-78) 02/02/20 00:40 PT 29.9 SEC (11.4-15.4) H 02/02/20 00:40 INR 2.78 02/02/20 00:40 Sodium 139.1 mmol/L (137-145) 02/02/20 00:40 Potassium 4.4 mmol/L (3.6-5.0) 02/02/20 00:40 Chloride 99 mmol/L (98-107) 02/02/20 00:40 Carbon Dioxide 32 mmol/L (22-30) H 02/02/20 00:40 Anion Gap 8 (5-19) 02/02/20 00:40 BUN 49 mg/dL (7-20) H 02/02/20 00:40 Creatinine 1.24 mg/dL (0.52-1.25) 02/02/20 00:40 Est GFR ( Amer) > 60 (>60) 02/02/20 00:40 Est GFR (MDRD) Non-Af 55 (>60) L 02/02/20 00:40 Glucose 203 mg/dL (75-110) H 02/02/20 00:40 Hemoglobin A1c % 7.3 % (4.7-6.0) H 02/02/20 00:40 Calcium 9.8 mg/dL (8.4-10.2) 02/02/20 00:40 Total Bilirubin 0.2 mg/dL (0.2-1.3) 02/02/20 00:40 Direct Bilirubin 0.0 mg/dL (0.0-0.4) 02/02/20 00:40 Neonat Total Bilirubin Not Reportable 02/02/20 00:40 Neonat Direct Bilirubin Not Reportable 02/02/20 00:40 Neonat Indirect Bili Not Reportable 02/02/20 00:40 AST 30 U/L (17-59) 02/02/20 00:40 ALT 12 U/L (<50) 02/02/20 00:40 Alkaline Phosphatase 72 U/L (38-126) 02/02/20 00:40 Troponin I 0.029 ng/mL 02/02/20 11:43 Total Protein 6.3 g/dL (6.3-8.2) 02/02/20 00:40 Albumin 3.4 g/dL (3.5-5.0) L 02/02/20 00:40 02/02/20 02/02/20 02/02/20 00:40 07:05 11:43 Troponin I 0.029 0.032 0.029 Impressions: Chest X-Ray 02/02/20 00:57 IMPRESSION: 1. No acute pulmonary findings. 2. Pacemaker Plan Health Concerns: Follow-up with a manager appointment at advised Time Spent: Less than 30 Minutes Stroke Is this a Stroke Patient?: No Acute Heart Failure - Is this a Heart Failure Patient?: No
--- NOTE | 2020-02-03 18:42 | PDOC PROGRESS REPORT ---
Subjective Progress Note for:: 02/03/20 Subjective:: Patient seems to be doing better with gradual improvement. Pt is denying any chest arm or neck discomfort. Patient denying any PND, orthopnea. Patient denied any sustained palpitations, dizziness, syncope, near syncope. Patient denying any fever chills. Patient denying any other significant discomfort. Patient is maintaining ventricular paced rhythm Review of systems: Rest review of systems negative. Medications: Medications have been reviewed. Reason For Visit: CHEST PAIN,DIABETES MELLITUS,AFIB Physical Exam Vital Signs: Temp Pulse Resp BP Pulse Ox 97.9 F 68 16 145/66 H 97 02/03/20 11:54 02/03/20 11:54 02/03/20 11:54 02/03/20 11:54 02/03/20 11:54 Intake & Output 02/02/20 02/03/20 02/04/20 06:59 06:59 06:59 Intake Total 240 Output Total 700 Balance -460 Weight 89.6 kg 85.5 kg General appearance: PRESENT: no acute distress, well-developed, well-nourished Head exam: PRESENT: atraumatic, normocephalic Eye exam: PRESENT: conjunctiva pink, EOMI, PERRLA. ABSENT: scleral icterus Ear exam: PRESENT: normal external ear exam Mouth exam: PRESENT: moist, tongue midline Neck exam: ABSENT: carotid bruit, JVD, lymphadenopathy, thyromegaly Respiratory exam: PRESENT: clear to auscultation giuliano. ABSENT: rales, rhonchi, wheezes Cardiovascular exam: PRESENT: RRR. ABSENT: diastolic murmur, rubs, systolic murmur Pulses: PRESENT: normal dorsalis pedis pul Vascular exam: PRESENT: normal capillary refill GI/Abdominal exam: PRESENT: normal bowel sounds, soft. ABSENT: distended, guarding, mass, organolmegaly, rebound, tenderness Rectal exam: PRESENT: deferred Extremities exam: PRESENT: full ROM. ABSENT: calf tenderness, clubbing, pedal edema Neurological exam: PRESENT: alert, awake, oriented to person, oriented to place, oriented to time, oriented to situation, CN II-XII grossly intact. ABSENT: motor sensory deficit Psychiatric exam: PRESENT: appropriate affect, normal mood. ABSENT: homicidal ideation, suicidal ideation Skin exam: PRESENT: dry, intact, warm. ABSENT: cyanosis, rash Results Laboratory Results: 02/02/20 00:40 02/02/20 00:40 02/02/20 02/02/20 02/02/20 00:40 07:05 11:43 Troponin I 0.029 0.032 0.029 Impressions: Chest X-Ray 02/02/20 00:57 IMPRESSION: 1. No acute pulmonary findings. 2. Pacemaker Assessment & Plan - Diagnosis (1) Chest pain Qualifiers: Chest pain type: unspecified Qualified Code(s): R07.9 - Chest pain, unspecified Is this a current diagnosis for this admission?: Yes (2) Chronic atrial fibrillation Is this a current diagnosis for this admission?: Yes (3) Diabetes mellitus Is this a current diagnosis for this admission?: Yes (5) Cardiac pacemaker in situ Is this a current diagnosis for this admission?: Yes - Notes Notes: Chest pain: Resolved. Etiology not clear but patient stable for discharge. He was asked to report any recurrence of chest pain. Patient advised to follow-up with his regular elephant tamer. Chronic atrial fibrillation: Rate controlled. Patient seems pacemaker dependent. Continue with chronic anticoagulation and rate control strategy. Diabetes: Currently well managed. Hypertension: Adequately controlled. Pacemaker in situ: Seems to be normally functioning based on telemetry strips reviewed. - Time Time with patient: Greater than 35 minutes - More than 50% of the time spent coordinating care, discussing management plans with involved caregivers. Management plans discussed with involved personnels. Medical decision making was of moderate to high complexity, patient's has multiple comorbidities. Medications reviewed and adjusted accordingly: Yes
== END 2020-02-03 13:05 | disposition home or self-care (01) ==
LOC: ER 00:56 → EH 02:41 → 4S 03:45
PROVIDERS: ADMIT Internal Medicine; ATTEND Internal Medicine
DX: R07.89 Other chest pain (principal); I48.20 Chronic atrial fibrillation, unspecified; I25.10 Atherosclerotic heart disease of native coronary artery without angina pectoris; G89.29 Other chronic pain; M54.9 Dorsalgia, unspecified; J44.9 Chronic obstructive pulmonary disease, unspecified; E11.65 Type 2 diabetes mellitus with hyperglycemia; I11.0 Hypertensive heart disease with heart failure; I50.9 Heart failure, unspecified; K59.09 Other constipation; F11.20 Opioid dependence, uncomplicated; N40.0 Benign prostatic hyperplasia without lower urinary tract symptoms; Z95.0 Presence of cardiac pacemaker; Z79.899 Other long term (current) drug therapy; Z79.01 Long term (current) use of anticoagulants; Z79.51 Long term (current) use of inhaled steroids; Z79.84 Long term (current) use of oral hypoglycemic drugs; Z87.891 Personal history of nicotine dependence; Z90.49 Acquired absence of other specified parts of digestive tract
CPT/HCPCS: 93005 ×3; 99285; 36415; 85025; 85610; 80053; 84484; 83036; 93306; 71045; 93010 ×2; A9270 ×8

== ENCOUNTER 2020-07-23 06:04 | Emergency (ER) | payer MEDICARE, BC ==
[2020-07-23 07:03] LABS: ABSOLUTE EOSINOPHILS # (AUTO) 0.4 10^3/uL (0.0-0.6); ABSOLUTE LYMPHOCYTES (AUTO) 0.8 10^3/uL (0.5-4.7); ABSOLUTE MONOCYTES (AUTO) 0.6 10^3/uL (0.1-1.4); ABSOLUTE NEUT (AUTO) 6.2 10^3/uL (1.7-8.2); BASOPHILS % (AUTO) 0.3 % (0-2); EOSINOPHILS % (AUTO) 5.2 % (0-6); HEMATOCRIT 35.9 % (37.9-51.0); LYMPHOCYTES % (AUTO) 10.1 % (13-45); MEAN CORPUSCULAR HEMOGLOBIN 32.3 pg (27.0-33.4); MEAN CORPUSCULAR HGB CONC 33.5 g/dL (32.0-36.0); MEAN CORPUSCULAR VOLUME 96 fl (80-97); MONOCYTES % (AUTO) 7.4 % (3-13); PLATELET COUNT 143 10^3/uL (150-450); RED BLOOD COUNT 3.73 10^6/uL (4.35-5.55); TOTAL CELLS COUNTED % (AUTO) 100 %
[2020-07-23 07:05] LABS: ALBUMIN 3.5 g/dL (3.5-5.0); ALKALINE PHOSPHATASE 65 U/L (38-126); ANION GAP 7 (5-19); ASPARTATE AMINO TRANSFERASE 21 U/L (17-59); BILIRUBIN,DIRECT 0.2 mg/dL (0.0-0.4); BILIRUBIN,TOTAL 0.6 mg/dL (0.2-1.3); BLOOD UREA NITROGEN 56 mg/dL (7-20); CALCIUM 9.4 mg/dL (8.4-10.2); CARBON DIOXIDE 31 mmol/L (22-30); CHLORIDE 100 mmol/L (98-107); GLUCOSE 136 mg/dL (75-110); POTASSIUM 4.5 mmol/L (3.6-5.0); TOTAL PROTEIN 5.9 g/dL (6.3-8.2)
[2020-07-23 07:17] LABS: APPEARANCE,URINE CLEAR; BILIRUBIN,URINE NEGATIVE (NEGATIVE); COLOR,URINE STRAW; GLUCOSE, URINE NEGATIVE (NEGATIVE); KETONES,URINE NEGATIVE (NEGATIVE); LEUKOCYTE ESTERASE,URINE NEGATIVE (NEGATIVE); NITRITE,URINE NEGATIVE (NEGATIVE); PROTEIN,URINE NEGATIVE (NEGATIVE); URINE SPECIFIC GRAVITY 1.009; UROBILINOGEN,URINE NEGATIVE mg/dL (<2.0)
--- NOTE | 2020-07-23 07:25 | RADIOLOGY REPORT (SQ) ---
AP Portable chest: 07/23/2020 6:23 AM CDT History: 84-year old patient with dyspnea. Comparison: None available Findings: The cardiomediastinal silhouette is enlarged. No pneumothorax is seen. No acute airspace opacities are seen. No discrete pleural effusion is apparent. A single lead left-sided pacemaker is seen. Atherosclerotic calcifications are seen at the aortic arch. Impression: No acute airspace opacities are seen. The cardiomediastinal silhouette is enlarged.
[2020-07-23] MEDS ORDERED: MORPHINE SULFATE SR 30 MG TABLET PO ONE (07:48)
[2020-07-23] MEDS ORDERED: ONDANSETRON 4 MG TAB.RAPDIS PO ONE (07:50)
[2020-07-23] MEDS ORDERED: OXYCODONE HCL IR 5 MG TABLET PO ONE (07:50)
[2020-07-23] MEDS ORDERED: [UNRECOGNIZED DRUG - OTHER] PO SCH (10:00)
[2020-07-23] MEDS ORDERED: TAMSULOSIN HCL 0.4 MG CAP.SR.24H PO SCH (10:00)
[2020-07-23] MEDS ORDERED: WARFARIN SODIUM 5 MG TABLET PO SCH (10:00)
[2020-07-23] MEDS ORDERED: OMEGA-3 ACID ETHYL ESTERS 1 GM CAPSULE PO SCH (10:00)
[2020-07-23] MEDS ORDERED: [UNRECOGNIZED DRUG - REMARK] PO SCH (10:00)
[2020-07-23] MEDS ORDERED: METOPROLOL TARTRATE 25 MG TABLET PO SCH (10:00)
[2020-07-23] MEDS ORDERED: LACTOBACILLUS ACIDOPHILUS 250 MG TAB PO SCH (10:00)
[2020-07-23] MEDS ORDERED: (PENDING PHARMACY ID) (Warfarin Sodium 5 MG) PO SCH (10:00)
[2020-07-23] MEDS ORDERED: OMEGA PO SCH (10:00)
[2020-07-23] MEDS ORDERED: CYANOCOBALAMIN (VITAMIN B-12) 1,000 MCG TABLET PO SCH (10:00)
[2020-07-23] MEDS ORDERED: FISH OIL PO SCH (10:00)
[2020-07-23] MEDS ORDERED: DHA PO SCH (10:00)
[2020-07-23] MEDS ORDERED: EPA PO SCH (10:00)
[2020-07-23] MEDS ORDERED: GLIMEPIRIDE 1 MG TABLET PO SCH (10:00)
[2020-07-23] MEDS ORDERED: (PENDING PHARMACY ID) (Linaclotide 145 MCG) PO SCH (10:00)
[2020-07-23] MEDS ORDERED: FUROSEMIDE 40 MG TABLET PO SCH (10:00)
[2020-07-23] MEDS ORDERED: LORATADINE 10 MG TABLET PO SCH (10:00)
[2020-07-23] MEDS ORDERED: ISOSORBIDE DINITRATE 10 MG TABLET PO SCH (10:00)
[2020-07-23] MEDS ORDERED: LACTOBACILLUS RHAMNOSUS GG PO SCH (10:00)
[2020-07-23] MEDS ORDERED: AMLODIPINE BESYLATE 5 MG TABLET PO SCH (10:00)
--- NOTE | 2020-07-23 12:48 | ER Document Report ---
Entered by NEHA MCCORMICK SCRIBE 07/23/20 0732 Acting as scribe for:TOM GARCIA MD ED Respiratory Problem - General Chief Complaint: Shortness Of Breath Stated Complaint: SHORTNESS OF BREATH SUPINE Time Seen by Provider: 07/23/20 06:10 Primary Care Provider: GREY MCMULLEN MD [Primary Care Provider] - Follow up as needed Information source: Patient Notes: This 84 year old male patient presents to the emergency department today with chief complaint of shortness of breath. Patient states this morning he was walking to the bathroom and began to feel short of breath. Patient states he sat down in his recliner and took deep breaths, then began to feel better. Patient states during this his pulse ox was in the 70's and HR increased, which is why EMS was called. Denies chest pain. Patient reports history of Afib, HTN, DM, and a pacemaker. Patient states he ambulates at home with a three wheel walker and tripped with his walker x3 days ago hitting his left ribs on the handle. Denies loss of consciousness. Patient states he recently increased his Lasix medication from 40 mg BID to 80 mg BID for a couple of days, and is now back to 40 mg. Patient reports a rash on his forehead that he is seeing his Materials And Corrosion Engineer for. TRAVEL OUTSIDE OF THE [place] IN LAST 30 DAYS: No - Related Data Allergies/Adverse Reactions: No Known Allergies Allergy (Verified 10/03/18 07:48) Past Medical History - General Information source: Patient - Social History Smoking Status: Never Smoker Cigarette use (# per day): No Chew tobacco use (# tins/day): No Frequency of alcohol use: None Drug Abuse: None Lives with: Family Family History: COPD Patient has homicidal ideation: No - Past Medical History Cardiac Medical History: Reports: Hx Atrial Fibrillation, Hx Hypercholesterolemia, Hx Hypertension Pulmonary Medical History: Reports: Hx Asthma, Hx COPD, Hx Pneumonia Endocrine Medical History: Reports: Hx Diabetes Mellitus Type 2 Renal/ Medical History: Reports: Hx Benign Prostatic Hyperplasia GI Medical History: Musculoskeletal Medical History: Reports Hx Arthritis Infectious Medical History: Past Surgical History: Reports: Hx Appendectomy, Hx Cardiac Catheterization, Hx Cholecystectomy, Hx Orthopedic Surgery, Hx Pacemaker, Hx Tonsillectomy - Immunizations Hx Diphtheria, Pertussis, Tetanus Vaccination: Yes Hx Pneumococcal Vaccination: 02/02/06 Review of Systems - Review of Systems Constitutional: No symptoms reported EENT: No symptoms reported Cardiovascular: See HPI. denies: Chest pain Respiratory: See HPI, Short of breath Gastrointestinal: No symptoms reported Genitourinary: No symptoms reported Male Genitourinary: No symptoms reported Musculoskeletal: See HPI, Muscle pain - L ribs Skin: See HPI, Rash - face Hematologic/Lymphatic: No symptoms reported Neurological/Psychological: See HPI. denies: Lost consciousness -: Yes All other systems reviewed and negative Physical Exam - Vital signs Vitals: Temp Resp BP Pulse Ox 98.1 F 20 157/65 H 97 07/23/20 06:12 07/23/20 06:12 07/23/20 06:12 07/23/20 06:12 - General General appearance: Appears well, Alert - HEENT Eyes: Normal Pupils: PERRL Neck: Normal, Supple Notes: Chronic scabs from rash on the forehead. - Respiratory Respiratory status: No respiratory distress Chest status: Nontender Breath sounds: Normal Chest palpation: Normal - Cardiovascular Rhythm: Regular Heart sounds: Normal auscultation Murmur: Yes Systolic murmur grade 1-6: 4 - Abdominal Inspection: Normal Distension: No distension Bowel sounds: Normal Tenderness: Nontender - Extremities General upper extremity: Normal inspection. No: Edema General lower extremity: Normal inspection. No: Edema - Neurological Neuro grossly intact: Yes Cognition: Normal Orientation: AAOx4 [place] Coma Scale Eye Opening: Spontaneous Tamara Coma Scale Verbal: Oriented [place] Coma Scale Motor: Obeys Commands [place] Coma Scale Total: 15 Speech: Normal - Psychological Associated symptoms: Normal affect, Normal mood - Skin Skin Temperature: Warm Skin Moisture: Dry Skin Color: Normal Course - Re-evaluation Re-evalutation: 07/23/20 12:40 Patient resting comfortably not having any signs of distress at this time. Denies any chest pain shortness of breath nausea vomiting headache. - Vital Signs Vital signs: Temp Pulse Resp BP Pulse Ox 98.1 F 18 119/66 98 07/23/20 06:12 07/23/20 11:01 07/23/20 10:00 07/23/20 06:16 07/23/20 12:40 Vital signs stable. Afebrile pulse ox 98% respiratory rate 18. - Laboratory Result Diagrams: 07/23/20 06:35 07/23/20 06:35 Laboratory results interpreted by me: 07/23/20 07/23/20 07/23/20 06:35 06:35 06:45 RBC 3.73 L Hgb 12.0 L Hct 35.9 L Plt Count 143 L Lymph % (Auto) 10.1 L Carbon Dioxide 31 H BUN 56 H Creatinine 1.36 H Est GFR (MDRD) Non-Af 50 L Glucose 136 H Total Protein 5.9 L Urine Blood SMALL H 07/23/20 12:41 Patient is chronic elevated troponin levels none of them are above the acute IA cutoff level. Case discussed with Dr. Croft the spiritual care coordinator accounting reconciliation clerk today. He agrees that patient can be discharged home with these low level chronic elevated troponin levels. - Diagnostic Test Radiology reviewed: Image reviewed, Reports reviewed Radiology results interpreted by me: 07/23/20 12:42 Chest x-ray shows cardiomegaly no other acute process of note there is a pacemaker in the left chest wall. - EKG Interpretation by Me Additional EKG results interpreted by me: 07/23/20 12:43 Twelve-lead EKG shows ventricular paced rhythm rate of 65 with repull changes noted from pacemaker. Ventricular rate 65 repeat EKG shows ventricular paced complexes nonspecific intraventricular conduction delay nonspecific ST depression. Rate of 71 Discharge - Discharge Clinical Impression: Chronic atrial fibrillation, Shortness of breath on exertion, Chronic renal insufficiency Condition: Stable Disposition: HOME, SELF-CARE Additional Instructions: Atrial Fibrillation Atrial fibrillation is an abnormal heart rhythm, caused by irregular electrical circuits in the upper heart chamber. It can be caused by heart valve disease, hardening of the arteries, or metabolic problems such as thyroid disease, or may occur without a clear cause. Atrial fibrillation may occur only occasionally, or may be chronic. Atrial fibrillation often results in a very fast heart rate, with palpitations, lightheadedness, and shortness of breath. Treatment is to slow the abnormally fast rate, and to convert the rhythm back to normal, if possible. Many patients stay in atrial fibrillation for years without symptoms or complications. Your doctor will decide whether you can be converted back to a normal heart rhythm. Contact the doctor or emergency medical system at once if you develop chest pain, shortness of breath, or severe lightheadedness, or if you develop any disturbance of consciousness, problems with speech, or localized weakness. Continue your same medications. Follow-up with your primary care physician or spiritual care coordinator this week. Referrals: GREY MCMULLEN MD [Primary Care Provider] - Follow up as needed I personally performed the services described in the documentation, reviewed and edited the documentation which was dictated to the scribe in my presence, and it accurately records my words and actions.
[2020-07-23 13:29] VITALS: BP 103/64
--- NOTE | 2020-07-23 17:16 | EKG REPORT ---
SEVERITY:- ABNORMAL ECG - VENTRICULAR-PACED RHYTHM : Confirmed by: Scot Steiner 23-Jul-2020 17:15:18
== END 2020-07-23 13:45 | disposition home or self-care (01) ==
LOC: ER 06:04
DX: I48.20 Chronic atrial fibrillation, unspecified (principal); I12.9 Hypertensive chronic kidney disease with stage 1 through stage 4 chronic kidney disease, or unspecified chronic kidney disease; E11.22 Type 2 diabetes mellitus with diabetic chronic kidney disease; N18.9 Chronic kidney disease, unspecified; R06.02 Shortness of breath; R21 Rash and other nonspecific skin eruption; Z95.0 Presence of cardiac pacemaker
CPT/HCPCS: 93005; 99285; 36415; 83735; 85025; 80053; 81001; 84484; 71045; 93010; A9270 ×8; J3490; S0119